=== PATIENT | male | born 1955 | race Caucasian/White ===

== ENCOUNTER 2020-12-18 17:00 | Inpatient (IN) | payer BC, MEDICAID ==
[2020-12-18] MEDS ORDERED: Sodium Chloride 0.9% 10 ML Syringe FLUSH PRN (17:52)
[2020-12-18] MEDS ORDERED: Albuterol/Ipratropium 3.0-0.5 MG/3 ML Neb Soln NEB ONE (17:53)
[2020-12-18] MEDS ORDERED: Iopamidol 755 Mg/ML 100 ML Bottle IVPUSH ONE (19:31)
--- NOTE | 2020-12-18 19:32 | EDM.PDOC ---
ED HPI GENERAL MEDICAL PROBLEM - General Chief Complaint: Respiratory Problem Stated Complaint: [facility] Time Seen by Provider: 12/18/20 17:10 Source of Information: Reports: Patient, Fpc Records, RN Notes Reviewed History Limitations: Reports: No Limitations - History of Present Illness INITIAL COMMENTS - FREE TEXT/NARRATIVE: Patient is a 65-year-old male presenting to the emergency department via [facility] from [facility] with complaints of shortness of breath, wheezing, and tachypnea. He also reports a productive co ugh. Patient reports that symptoms began today. He denies any chest pain. On presentation to ER, patient was on 2 L of oxygen by nasal cannula through ambulance. He was saturating 94% on that 2 L. The time my exam, oxygen saturation was 98% on 2 L. Patient does not wear O2 at the [facility]. 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 He was recently started on chemotherapy medication, Zelboraf. Patient reports that he was recently treated for a urinary tract infection. Per care home records, he finished a course of Bactrim on 12 December. He denies any fever or chills. Has had no nausea or vomiting. Vital signs were found to be stable on triage. Temperature 98.1, pulse 83, blood pressure 124/84, respiratory rate 16. 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 - Related Data Allergies Allergy/AdvReac Type Severity Reaction Status Date / Time No Known Allergies Allergy Verified 08/16/20 11:53 [employer] Home Meds: Home Meds Sertraline HCl 100 mg PO DAILY 03/06/19 [History] atorvaSTATin [Lipitor] 20 mg PO BEDTIME 03/06/19 [History] Acetaminophen [Tylenol] 2 tab PO QID PRN 12/18/20 [History] Ferrous Sulfate [Ferosul] 325 mg PO BID 12/18/20 [History] L.acidoph,Saliva/B.bif/S.therm [Acidophilus 175 mg Capsule] 1 cap PO DAILY 12/18/20 [History] Melatonin 3 mg PO BEDTIME 12/18/20 [History] OLANZapine [Olanzapine] 10 mg PO DAILY 12/18/20 [History] OLANZapine [Olanzapine] 20 mg PO BEDTIME 12/18/20 [History] Pantoprazole [ProTONIX] 40 mg PO DAILY 12/18/20 [History] QUEtiapine [SEROquel] 50 mg PO Q8HR PRN 12/18/20 [History] Rivaroxaban [Xarelto] 20 mg PO QPM 12/18/20 [History] Vemurafenib [Zelboraf] 480 mg PO BID 12/18/20 [History] lamoTRIgine [Lamictal] 100 mg PO BEDTIME 12/18/20 [History] lamoTRIgine [Lamictal] 100 mg PO DAILY 12/18/20 [History] ondansetron HCL [Zofran] 4 mg PO Q4H PRN 12/18/20 [History] traMADol HCl [Tramadol HCl] 50 mg PO BID PRN 12/18/20 [History] Past Medical History - Past Health History Medical/Surgical History: Denies Medical/Surgical History HEENT History: Reports: Hard of Hearing Cardiovascular History: Reports: [place] Respiratory History: Reports: None Gastrointestinal History: Reports: None Genitourinary History: Reports: None Musculoskeletal History: Reports: Other (See Below) Other Musculoskeletal History: "broken hip" Neurological History: Reports: Other (See Below) Psychiatric History: Reports: Suicidal Ideation Endocrine/Metabolic History: Reports: None Insulin Pump Model and Stripe Marker: None Hematologic History: Reports: Other (See Below) Other Hematologic History: "blood cancer and it makes my brain swell" Immunologic History: Reports: None Oncologic (Cancer) History: Reports: Malignant Melanoma Other Oncologic History: Patient states he has a cancer in his blood which causes his brain to be "inflammed." Dermatologic History: Reports: None - Infectious Disease History Infectious Disease History: Reports: Chicken Pox, Measles, Mumps - Past Surgical History Cardiovascular Surgical History: Reports: Coronary Artery Bypass Other Musculoskeletal Surgeries/Procedures:: "put three screws in hip" Social & Family History - Family History Family Medical History: No Pertinent Family History - Tobacco Use Tobacco Use Status *Q: Never Tobacco User Second Hand Smoke Exposure: No - Caffeine Use Caffeine Use: Reports: None - Recreational Drug Use Recreational Drug Use: No - Living Situation & Occupation Living situation: Reports: , Alone Occupation: Unemployed ED ROS GENERAL - Review of Systems Review Of Systems: See Below Constitutional: Denies: Fever, Chills, Weakness HEENT: Reports: No Symptoms Respiratory: Reports: Shortness of Breath, Wheezing, Cough Cardiovascular: Reports: No Symptoms. Denies: Chest Pain Endocrine: Reports: No Symptoms GI/Abdominal: Reports: Constipation ED EXAM, GENERAL - Physical Exam Exam: See Below Exam Limited By: No Limitations General Appearance: Alert, WD/WN, No Apparent Distress Respiratory/Chest: No Respiratory Distress, No Accessory Muscle Use, Chest Non- Tender, Rhonchi (faint throughout), Wheezing (Expiratory throughout) Cardiovascular: Normal Peripheral Pulses, Regular Rate, Rhythm, No Edema, No Gallop, No JVD, No Murmur, No Rub GI/Abdominal: Normal Bowel Sounds, Soft, Non-Tender, No Organomegaly, No Distention, No Abnormal Bruit, No Mass Neurological: Alert, Oriented, CN II-XII Intact, Normal Cognition, Normal Gait, Normal Reflexes, No Motor/Sensory Deficits Psychiatric: Normal Affect, Normal Mood Skin Exam: Warm, Dry, Intact, Normal Color, No Rash #1 Interpretation EKG Date: 12/18/20 Time: 18:17 Rhythm: NSR Rate (Beats/Min): 82 [place]: Normal P-Wave: Present QRS: RBBB ST-T: Elevated QT: Normal EKG Interpretation Comments: Sinus rhythm 82 Right bundle branch block Inferior infarct, old Probable posterior infarct, acute EKG was reviewed by Dr. Bassem MD and there was deemed to be no acute change from previous EKGs. Patient is not having chest pain. Course - Vital Signs Last Recorded V/S: Last Vital Signs Temp 98.1 F 12/18/20 17:15 Pulse 83 12/18/20 17:15 Resp 16 12/18/20 17:15 BP 124/84 12/18/20 17:15 Pulse Ox 98 12/18/20 18:15 - Orders/Labs/Meds Orders: Active Orders 24 hr Category Date Time Status EKG Documentation Completion [RC] STAT Care 12/18/20 17:52 Active Peripheral IV Care [RC] . DIRECTED Care 12/18/20 17:53 Active RT Aerosol Therapy [RC] ASDIRECTED Care 12/18/20 17:53 Active CULTURE BLOOD [BC] Stat Lab 12/18/20 19:40 Received CULTURE BLOOD [BC] Stat Lab 12/18/20 19:48 Received REFLEX LACTIC ACID YES OR NO [CHEM] Routine Lab 12/18/20 20:18 Received Sodium Chloride 0.9% [Normal Saline] 1,000 ml Med 12/18/20 20:41 Active IV NOW Sodium Chloride 0.9% [Normal Saline] 100 ml Med 12/18/20 19:45 Active IV ASDIRECTED Sodium Chloride 0.9% [Saline Flush] Med 12/18/20 19:45 Active 10 ml FLUSH ASDIRECTED Blood Culture x2 Reflex Set [OM.PC] Stat Ot 12/18/20 19:00 Ordered Peripheral IV Insertion Adult [OM.PC] Stat Ot 12/18/20 17:52 Ordered Medication Orders Acetaminophen (Acetaminophen 325 Mg Tab) 650 mg PO Q6H PRN PRN Reason: Pain (Mild 1-3)/fever Hydrocodone Bitart/Acetaminophen (Acetaminophen/Hydrocodone 325-5 Mg Tab) 1 tab PO Q6H PRN PRN Reason: Pain (moderate 4-6) Albuterol/Ipratropium (Albuterol/Ipratropium 3.0-0.5 Mg/3 Ml Neb Soln) 3 ml NEB Q4H PRN PRN Reason: Shortness Of Breath/wheezing Atorvastatin Calcium (Atorvastatin 20 Mg Tab) 20 mg PO BEDTIME MELISSA Carbamazepine (Carbamazepine 200 Mg Tab) 200 mg PO BID MELISSA Hydralazine HCl (Hydralazine 20 Mg/Ml Sdv) 10 mg IVPUSH Q4H PRN PRN Reason: Hypertension Sodium Chloride (Normal Saline) 100 mls @ 60 mls/hr IV ASDIRECTED [facility] Last Admin: 12/18/20 20:15 Dose: 60 mls/hr Documented by: JERILYN Sodium Chloride (Normal Saline) 1,000 mls @ 100 mls/hr IV NOW STA Stop: 12/19/20 06:40 Last Admin: 12/18/20 21:09 Dose: 100 mls/hr Documented by: MERVIN Lactated Ringer's (Ringers, Lactated) 1,000 mls @ 70 mls/hr IV ASDIRECTED [facility] Promethazine HCl 12.5 mg/ (Sodium Chloride) 50.5 mls @ 100 mls/hr IV Q6H PRN PRN Reason: Nausea/Vomiting Ceftriaxone Sodium 2 gm/ (Sodium Chloride) 100 mls @ 200 mls/hr IV Q24H MELISSA Azithromycin 500 mg/ Sodium (Chloride) 250 mls @ 250 mls/hr IV Q24H [facility] Lisinopril (Lisinopril 2.5 Mg Tab) 2.5 mg PO DAILY [facility] Metoprolol Tartrate (Metoprolol Tartrate 50 Mg Tab) 25 mg PO BID [facility] Morphine Sulfate (Morphine 2 Mg/Ml Syringe) 2 mg IVPUSH Q4H PRN PRN Reason: Pain (severe 7-10) Stop: 12/19/20 21:20 Non-Formulary Medication (Omeprazole) 20 mg PO DAILY [facility] Sertraline HCl (Sertraline 50 Mg Tab) 50 mg PO DAILY [facility] Sodium Chloride (Sodium Chloride 0.9% 10 Ml Syringe) 10 ml FLUSH ASDIRECTED [facility] Last Admin: 12/18/20 20:15 Dose: 10 ml Documented by: JERILYN Labs: Laboratory Tests 12/18/20 12/18/20 12/18/20 Range/Units 18:00 18:00 18:00 WBC 17.75 H (4.23-9.07) K/mm3 Corrected WBC 16.1 K/mm3 RBC 4.98 (4.63-6.08) M/mm3 Hgb 9.6 L (13.7-17.5) gm/dl Hct 32.3 L (40.1-51.0) % MCV 64.9 L (79.0-92.2) fl MCH 19.3 L (25.7-32.2) pg MCHC 29.7 L (32.2-35.5) g/dl RDW Std Deviation 53.4 H (35.1-43.9) fL Plt Count 58 L (163-337) K/mm3 Neut % (Auto) Cancelled Lymph % (Auto) Cancelled [place] % (Auto) Cancelled Eos % (Auto) Cancelled Baso % (Auto) Cancelled Neut # (Auto) Cancelled Lymph # (Auto) Cancelled [place] # (Auto) Cancelled Eos # (Auto) Cancelled Baso # (Auto) Cancelled Neutrophils % (Manual) 20 L (40-60) % Band Neutrophils % 4 (0-10) % Lymphocytes % (Manual) 21 (20-40) % Atypical Lymphs % 0 % Monocytes % (Manual) 40 H (2-10) % Eosinophils % (Manual) 0 L (0.8-7.0) % Basophils % (Manual) 15 H (0.2-1.2) Nucleated RBCs 10.0 % Manual Slide Review Cancelled Platelet Estimate Marked dec Plt Morphology Comment See note Polychromasia 1+ slight Hypochromasia 2+ moderate Poikilocytosis 2+ moderate Anisocytosis 2+ moderate Microcytosis 3+ marked Target Cells 1+ slight Tear Drop Cells 1+ slight Ovalocytes 2+ moderate RBC Morph Comment Abnormal D-Dimer, Quantitative 1.23 H (0.19-0.50) mg/L Sodium 142 (136-145) mEq/L Potassium 3.7 (3.5-5.1) mEq/L Chloride 108 H (98-107) mEq/L Carbon Dioxide 24 (21-32) mEq/L Anion Gap 13.7 (5-15) BUN 15 (7-18) mg/dL Creatinine 1.1 (0.7-1.3) mg/dL Est Cr Clr Drug Dosing TNP Estimated GFR (MDRD) > 60 (>60) mL/min BUN/Creatinine Ratio 13.6 L (14-18) Glucose 96 (70-99) mg/dL Lactic Acid (0.4-2.0) mmol/L Calcium 7.3 L (8.5-10.1) mg/dL Total Bilirubin 2.0 H (0.2-1.0) mg/dL AST 41 H (15-37) U/L ALT 25 (16-63) U/L Alkaline Phosphatase 274 H (46-116) U/L Troponin I < 0.017 (0.00-0.056) ng/mL C-Reactive Protein 5.3 H* (<1.0) mg/dL NT-Pro-B Natriuret Pep (0-125) pg/mL Total Protein 5.1 L (6.4-8.2) g/dl Albumin 2.4 L (3.4-5.0) g/dl Globulin 2.7 gm/dL Albumin/Globulin Ratio 0.9 L (1-2) Urine Color (Yellow) Urine Appearance (Clear) Urine pH (5.0-8.0) Ur Specific [place] (1.005-1.030) Urine Protein (Negative) Urine Glucose (UA) (Negative) Urine Ketones (Negative) Urine Occult Blood (Negative) Urine Nitrite (Negative) Urine Bilirubin (Negative) Urine Urobilinogen (0.2-1.0) Ur Leukocyte Esterase (Negative) Urine RBC (0-5) /hpf Urine WBC (0-5) /hpf Ur Epithelial Cells (0-5) /hpf Urine Bacteria (FEW) /hpf Urine Mucus (FEW) /hpf 12/18/20 12/18/20 12/18/20 Range/Units 18:00 19:33 19:40 WBC (4.23-9.07) K/mm3 Corrected WBC K/mm3 RBC (4.63-6.08) M/mm3 Hgb (13.7-17.5) gm/dl Hct (40.1-51.0) % MCV (79.0-92.2) fl MCH (25.7-32.2) pg MCHC (32.2-35.5) g/dl RDW Std Deviation (35.1-43.9) fL Plt Count (163-337) K/mm3 Neut % (Auto) Lymph % (Auto) [place] % (Auto) Eos % (Auto) Baso % (Auto) Neut # (Auto) Lymph # (Auto) [place] # (Auto) Eos # (Auto) Baso # (Auto) Neutrophils % (Manual) (40-60) % Band Neutrophils % (0-10) % Lymphocytes % (Manual) (20-40) % Atypical Lymphs % % Monocytes % (Manual) (2-10) % Eosinophils % (Manual) (0.8-7.0) % Basophils % (Manual) (0.2-1.2) Nucleated RBCs % Manual Slide Review Platelet Estimate Plt Morphology Comment Polychromasia Hypochromasia Poikilocytosis Anisocytosis Microcytosis Target Cells Tear Drop Cells Ovalocytes RBC Morph Comment D-Dimer, Quantitative (0.19-0.50) mg/L Sodium (136-145) mEq/L Potassium (3.5-5.1) mEq/L Chloride (98-107) mEq/L Carbon Dioxide (21-32) mEq/L Anion Gap (5-15) BUN (7-18) mg/dL Creatinine (0.7-1.3) mg/dL Est Cr Clr Drug Dosing Estimated GFR (MDRD) (>60) mL/min BUN/Creatinine Ratio (14-18) Glucose (70-99) mg/dL Lactic Acid 2.3 H* (0.4-2.0) mmol/L Calcium (8.5-10.1) mg/dL Total Bilirubin (0.2-1.0) mg/dL AST (15-37) U/L ALT (16-63) U/L Alkaline Phosphatase (46-116) U/L Troponin I (0.00-0.056) ng/mL C-Reactive Protein (<1.0) mg/dL NT-Pro-B Natriuret Pep 1140 H (0-125) pg/mL Total Protein (6.4-8.2) g/dl Albumin (3.4-5.0) g/dl Globulin gm/dL Albumin/Globulin Ratio (1-2) Urine Color Yellow (Yellow) Urine Appearance Clear (Clear) Urine pH 6.0 (5.0-8.0) Ur Specific [place] 1.020 (1.005-1.030) Urine Protein Negative (Negative) Urine Glucose (UA) Negative (Negative) Urine Ketones Negative (Negative) Urine Occult Blood Negative (Negative) Urine Nitrite Negative (Negative) Urine Bilirubin Negative (Negative) Urine Urobilinogen 2.0 H (0.2-1.0) Ur Leukocyte Esterase Negative (Negative) Urine RBC 0-5 (0-5) /hpf Urine WBC Not seen (0-5) /hpf Ur Epithelial Cells Not seen (0-5) /hpf Urine Bacteria Rare (FEW) /hpf Urine Mucus Few (FEW) /hpf Meds: Medications Generic Name Dose Route Start Last Admin Trade Name Freq PRN Reason Stop Dose Admin Acetaminophen 650 mg 12/18/20 21:18 Acetaminophen 325 Mg Tab PO Q6H PRN Pain (Mild 1-3)/fever Hydrocodone Bitart/Acetaminophen 1 tab 12/18/20 21:18 Acetaminophen/Hydrocodone 325-5 Mg Tab PO Q6H PRN Pain (moderate 4-6) Albuterol/Ipratropium 3 ml 12/18/20 21:18 Albuterol/Ipratropium 3.0-0.5 Mg/3 Ml Neb Soln NEB Q4H PRN Shortness Of Breath/wheezing Atorvastatin Calcium 20 mg 12/19/20 21:00 Atorvastatin 20 Mg Tab PO BEDTIME MELISSA Carbamazepine 200 mg 12/18/20 21:30 Carbamazepine 200 Mg Tab PO BID MELISSA Hydralazine HCl 10 mg 12/18/20 21:26 Hydralazine 20 Mg/Ml Sdv IVPUSH Q4H PRN Hypertension Sodium Chloride 100 mls @ 60 mls/hr 12/18/20 19:45 12/18/20 20:15 Normal Saline IV 60 mls/hr ASDIRECTED MELISSA Administration Sodium Chloride 1,000 mls @ 100 mls/hr 12/18/20 20:41 12/18/20 21:09 Normal Saline IV 12/19/20 06:40 100 mls/hr NOW STA Administration Lactated Ringer's 1,000 mls @ 70 mls/hr 12/18/20 21:30 Ringers, Lactated IV ASDIRECTED MELISSA Promethazine HCl 12.5 mg/ 50.5 mls @ 100 mls/hr 12/18/20 21:18 Sodium Chloride IV Q6H PRN Nausea/Vomiting Ceftriaxone Sodium 2 gm/ 100 mls @ 200 mls/hr 12/19/20 21:00 Sodium Chloride IV Q24H MELISSA Azithromycin 500 mg/ Sodium 250 mls @ 250 mls/hr 12/18/20 22:00 Chloride IV Q24H MELISSA Lisinopril 2.5 mg 12/19/20 09:00 Lisinopril 2.5 Mg Tab PO DAILY MELISSA Metoprolol Tartrate 25 mg 12/19/20 09:00 Metoprolol Tartrate 50 Mg Tab PO BID MELISSA Morphine Sulfate 2 mg 12/18/20 21:18 Morphine 2 Mg/Ml Syringe IVPUSH 12/19/20 21:20 Q4H PRN Pain (severe 7-10) Non-Formulary Medication 20 mg 12/19/20 09:00 Omeprazole PO DAILY MELISSA Sertraline HCl 50 mg 12/19/20 09:00 Sertraline 50 Mg Tab PO DAILY MELISSA Sodium Chloride 10 ml 12/18/20 19:45 12/18/20 20:15 Sodium Chloride 0.9% 10 Ml Syringe FLUSH 10 ml ASDIRECTED MELISSA Administration Discontinued Medications Generic Name Dose Route Start Last Admin Trade Name Freq PRN Reason Stop Dose Admin Albuterol/Ipratropium 3 ml 12/18/20 17:53 12/18/20 18:15 Albuterol/Ipratropium 3.0-0.5 Mg/3 Ml Neb Soln NEB 12/18/20 17:54 3 ml ONETIME ONE Administration Ceftriaxone Sodium 2 gm/ 100 mls @ 200 mls/hr 12/18/20 20:38 12/18/20 21:09 Sodium Chloride IV 12/18/20 21:07 200 mls/hr ONETIME ONE Administration Iopamidol 100 ml 12/18/20 19:31 12/18/20 20:14 Iopamidol 755 Mg/Ml 100 Ml Bottle IVPUSH 12/18/20 19:32 100 ml ONETIME ONE Administration Sodium Chloride 10 ml 12/18/20 17:52 12/18/20 18:10 Sodium Chloride 0.9% 10 Ml Syringe FLUSH 10 ml ASDIRECTED PRN Administration Keep Vein Open - Re-Assessments/Exams Free Text/Narrative Re-Assessment/Exam: Patient is a 65-year-old male presenting to the emergency department from [facility] with complaints of wheezing and shortness of breath. Patient states his symptoms began today. care home reports that he is only alert and oriented x1, however throughout my exam, he answered questions appropriately and did know where he was. He was unsure of the date, therefore he is oriented x2. He has a history of Erdheim-Harjinder disease for which he is currently taking the chemotherapy medication Zelboraf. He denies any chest pain. On exam, he does have diffuse expiratory wheezing bilaterally. Oxygen was turned off and he has been saturating 95 to 98% on room air. I have ordered blood work, urinalysis, EKG, and two-view chest x-ray. I have also ordered a DuoNeb breathing treatment. 12/18/201899 Hematology was significant for WBC elevated at 17.75, hemoglobin low at 9.6, D- dimer 1.23, chloride 108, calcium 7.3, total bili 2.0, AST 41, alkaline phosphatase 274, CRP 5.3, proBNP 1140. Troponin is undetectably low. Urinalysis shows no signs of infection. Chest x-ray shows nothing acute. Patient is wheezing did improve significantly after the DuoNeb breathing treatment. Given his elevation in WBCs as well as elevated D-dimer, I have ordered lactic acid, blood cultures, and a CT angiogram of the chest. 12/18/202049 Lactic acid is found to be elevated 2.3. CT angiogram of the chest impression as follows: 1. No findings of pulmonary embolism. 2. Patchy increased density within the left upper chest suspicious for small area of pneumonia. 3. Mild prominent lymph node within the mediastinum as well as marked splenomegaly. Left adrenal mass also appears to be present. Difficult to exclude lymphoma if patient has any correlating symptoms. 4. Slight inflammatory change around the right kidney. Uncertain as to etiology without contrast enhanced CT abdomen and pelvis study. Given patient's history of oral chemotherapy as well as elevation in WBCs and lactic acid, I feel admission to the hospital is warranted. I have ordered Rocephin 2 g IV as well as NS at 150 mils per hour. Case was discussed with hospitalist, Dr. Couch. He has accepted the patient for admission. Departure - Departure Time of Disposition: 22:08 Disposition: Home, Self-Care 01 Condition: Good Clinical Impression: Pneumonia Qualifiers: Pneumonia type: due to unspecified organism Laterality: left Lung location: upper lobe of lung Qualified Code(s): J18.9 - Pneumonia, unspecified organism - Discharge Information Sepsis Event Note (ED) - Evaluation Sepsis Screening Result: No Definite Risk - Focused Exam Vital Signs: Vital Signs Temp Pulse Resp BP Pulse Ox Pulse Ox 12/18/20 18:15 98 12/18/20 17:15 98.1 F 83 16 124/84 94 L - My Orders Last 24 Hours: My Active Orders 12/18/20 17:52 EKG Documentation Completion [RC] STAT Peripheral IV Insertion Adult [OM.PC] Stat 12/18/20 17:53 Peripheral IV Care [RC] . DIRECTED RT Aerosol Therapy [RC] ASDIRECTED 12/18/20 19:00 Blood Culture x2 Reflex Set [OM.PC] Stat 12/18/20 19:40 CULTURE BLOOD [BC] Stat 12/18/20 19:45 Sodium Chloride 0.9% [Normal Saline] 100 ml IV ASDIRECTED Sodium Chloride 0.9% [Saline Flush] 10 ml FLUSH ASDIRECTED 12/18/20 19:48 CULTURE BLOOD [BC] Stat 12/18/20 20:18 REFLEX LACTIC ACID YES OR NO [CHEM] Routine 12/18/20 20:41 Sodium Chloride 0.9% [Normal Saline] 1,000 ml IV NOW - Assessment/Plan Last 24 Hours: My Active Orders 12/18/20 17:52 EKG Documentation Completion [RC] STAT Peripheral IV Insertion Adult [OM.PC] Stat 12/18/20 17:53 Peripheral IV Care [RC] . DIRECTED RT Aerosol Therapy [RC] ASDIRECTED 12/18/20 19:00 Blood Culture x2 Reflex Set [OM.PC] Stat 12/18/20 19:40 CULTURE BLOOD [BC] Stat 12/18/20 19:45 Sodium Chloride 0.9% [Normal Saline] 100 ml IV ASDIRECTED Sodium Chloride 0.9% [Saline Flush] 10 ml FLUSH ASDIRECTED 12/18/20 19:48 CULTURE BLOOD [BC] Stat 12/18/20 20:18 REFLEX LACTIC ACID YES OR NO [CHEM] Routine 12/18/20 20:41 Sodium Chloride 0.9% [Normal Saline] 1,000 ml IV NOW
--- NOTE | 2020-12-18 19:35 | CR ---
Chest: 2 views of the chest were obtained. Comparison: No previous study. Small portions of the chest are not included on this exam due to the patient's body size. Heart size and mediastinum are normal. Lungs are clear with no acute parenchymal change. Previous sternotomy is noted. Minimal degenerative change is scattered within the spine. Slight anterior wedge deformity with the lower thoracic spine is seen which is most likely chronic. Impression: 1. Nothing acute is appreciated on 2 view chest x-ray. Diagnostic code #2
[2020-12-18] MEDS ORDERED: Sodium Chloride 0.9% 100 ML IV SCH (19:45)
[2020-12-18] MEDS ORDERED: Sodium Chloride 0.9% 10 ML Syringe FLUSH SCH (19:45)
--- NOTE | 2020-12-18 20:36 | CT ---
CT chest Technique: Multiple axial sections through the chest were obtained. Intravenous contrast was utilized. Study has been performed as a pulmonary angiogram protocol. Comparison: Prior chest x-ray performed earlier on the same day (6:04 PM). Findings: Pulmonary arteries are well opacified. No filling defects are seen to indicate pulmonary embolism. Scattered lymph nodes are seen. One lymph node is increased in size measuring 2.2 cm. Thoracic aorta shows mild atherosclerotic change without aneurysm. Slightly prominent right hilar lymph node is also noted. Heart is slightly enlarged. No pericardial thickening is seen. Spleen is prominently enlarged. Left adrenal gland may be enlarged. Varicosities appear to be present within the upper abdomen. Several calcified gallstones are seen. Questionable inflammatory change around the right kidney is noted. Diffuse emphysematous change is seen. Patchy increased density within the left upper chest is noted. Lungs otherwise are clear. Impression: 1. No findings of pulmonary embolism. 2. Patchy increased density within the left upper chest suspicious for small area of pneumonia. 3. Mildly prominent lymph nodes within the mediastinum as well as marked splenomegaly. Left adrenal mass also appears to be present. Difficult to exclude lymphoma if patient has any correlating symptoms. 4. Slight inflammatory type change around the right kidney. Uncertain as to etiology without contrast enhanced CT abdomen and pelvis study. Diagnostic code #9
[2020-12-18] MEDS ORDERED: cefTRIAXone 2 GM in Sodium Chloride 0.9% 100 ML IV ONE (20:38)
[2020-12-18] MEDS ORDERED: Sodium Chloride 0.9% 1,000 ML IV STA (20:41)
[2020-12-18] MEDS ORDERED: Morphine 2 MG/ML SYRINGE IVPUSH PRN (21:18)
[2020-12-18] MEDS ORDERED: Promethazine 12.5 MG in Sodium Chloride 0.9% 50 ML IV PRN (21:18)
[2020-12-18] MEDS ORDERED: hydrALAZINE 20 MG/ML SDV IVPUSH PRN (21:26)
[2020-12-18] MEDS ORDERED: carBAMazepine 200 MG Tab PO SCH (21:30)
--- NOTE | 2020-12-18 21:31 | PCM.HP.2 ---
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 Patient has been having shortness of breath for 3 weeks associated with the cough with yellowish sputum. He also complains of left upper quadrant abdomen pain for 3 weeks. The pain is constant, sharp in nature and a 10 out of 10 in severity. He feels more pain if he takes deep breaths. He has been having slurred speech for 3 years. Otherwise he denies headache, dizziness, nausea, vomiting, chest pain, or dysuria. He needed oxygen in the ER. In the ER, D-dimer was elevated. CT angio chest was performed showing no pulmonary embolism. Generalized Pain Score (Numeric/FACES): 6 - Related Data Allergies/Adverse Reactions: Allergies Allergy/AdvReac Type Severity Reaction Status Date / Time No Known Allergies Allergy Verified 08/16/20 11:53 SHIATSU THERAPIST Home Medications: Home Meds Sertraline HCl 100 mg PO DAILY 03/06/19 [History] atorvaSTATin [Lipitor] 20 mg PO BEDTIME 03/06/19 [History] Acetaminophen [Tylenol] 2 tab PO QID 12/18/20 [History] Ferrous Sulfate [Ferosul] 325 mg PO BID 12/18/20 [History] L.acidoph,Saliva/B.bif/S.therm [Acidophilus 175 mg Capsule] 1 cap PO DAILY 12/18/20 [History] Lidocaine 5% [Lidoderm 5%] 1 patch TOP DAILY 12/18/20 [History] Melatonin 3 mg PO BEDTIME 12/18/20 [History] OLANZapine [Olanzapine] 10 mg PO DAILY 12/18/20 [History] OLANZapine [Olanzapine] 20 mg PO BEDTIME 12/18/20 [History] Pantoprazole [ProTONIX] 40 mg PO DAILY 12/18/20 [History] QUEtiapine [SEROquel] 50 mg PO Q8HR PRN 12/18/20 [History] Rivaroxaban [Xarelto] 20 mg PO QPM 12/18/20 [History] Vemurafenib [Zelboraf] 480 mg PO BID 12/18/20 [History] lamoTRIgine [Lamictal] 100 mg PO BEDTIME 12/18/20 [History] lamoTRIgine [Lamictal] 100 mg PO DAILY 12/18/20 [History] ondansetron HCL [Zofran] 8 mg PO Q4H PRN 12/18/20 [History] traMADol HCl [Tramadol HCl] 50 mg PO BID PRN 12/18/20 [History] Past Medical History - Past Health History Medical/Surgical History: Denies Medical/Surgical History HEENT History: Reports: Hard of Hearing Cardiovascular History: Reports: [place] Respiratory History: Reports: None Gastrointestinal History: Reports: None Genitourinary History: Reports: None Musculoskeletal History: Reports: Other (See Below) Other Musculoskeletal History: "broken hip" Neurological History: Reports: Other (See Below) Psychiatric History: Reports: Suicidal Ideation Endocrine/Metabolic History: Reports: None Insulin Pump Model and Solution Developer: None Hematologic History: Reports: Other (See Below) Other Hematologic History: "blood cancer and it makes my brain swell" Immunologic History: Reports: None Oncologic (Cancer) History: Reports: Malignant Melanoma Other Oncologic History: Patient states he has a cancer in his blood which causes his brain to be "inflammed." Dermatologic History: Reports: None - Infectious Disease History Infectious Disease History: Reports: Chicken Pox, Measles, Mumps - Past Surgical History Cardiovascular Surgical History: Reports: Coronary Artery Bypass Other Musculoskeletal Surgeries/Procedures:: "put three screws in hip" Social & Family History - Family History Family Medical History: No Pertinent Family History (No genetic diseases in the family) - Tobacco Use Tobacco Use Status *Q: Never Tobacco User Second Hand Smoke Exposure: No - Caffeine Use Caffeine Use: Reports: None - Recreational Drug Use Recreational Drug Use: No - Living Situation & Occupation Living situation: Reports: , Alone Occupation: Unemployed H&P Review of Systems - Review of Systems: Review Of Systems: See Below General: Reports: No Symptoms HEENT: Reports: No Symptoms Pulmonary: Reports: Shortness of Breath, Cough, Sputum Cardiovascular: Reports: No Symptoms Gastrointestinal: Reports: No Symptoms Genitourinary: Reports: No Symptoms Musculoskeletal: Reports: No Symptoms Skin: Reports: No Symptoms Psychiatric: Reports: No Symptoms Neurological: Reports: No Symptoms Hematologic/Lymphatic: Reports: No Symptoms Immunologic: Reports: No Symptoms Exam - Exam Exam: See Below - Vital Signs Vital Signs: Last Vital Signs Temp 36.7 C 12/18/20 17:15 Pulse 83 12/18/20 17:15 Resp 16 12/18/20 17:15 BP 124/84 12/18/20 17:15 Pulse Ox 98 12/18/20 18:15 Weight: 78.018 kg - Exam General: Alert, Oriented, Cooperative HEENT: Conjunctiva Clear, EOMI, Pupils Equal, Pupils Reactive Neck: Supple, Full Range of Motion Lungs: Clear to Auscultation, Normal Respiratory Effort Cardiovascular: Irregular Rhythm GI/Abdominal Exam: Normal Bowel Sounds, Soft, Tender (Over left upper quadrant) Extremities: Normal Inspection, Normal Range of Motion, Non-Tender, No Pedal E laz Neurological: Cranial Nerves Intact, Strength Equal Bilateral, Normal Tone, Sensation Intact, Other (Has been having slurred speech for 3 years) Neuro Extensive - Mental Status: Alert, Normal Mood/Affect Psychiatric: Normal Affect, Normal Mood - Patient Data Lab Results Last 24 hrs: Laboratory Results - last 24 hr 12/18/20 12/18/20 12/18/20 Range/Units 18:00 18:00 18:00 WBC 17.75 H (4.23-9.07) K/mm3 Corrected WBC 16.1 K/mm3 RBC 4.98 (4.63-6.08) M/mm3 Hgb 9.6 L (13.7-17.5) gm/dl Hct 32.3 L (40.1-51.0) % MCV 64.9 L (79.0-92.2) fl MCH 19.3 L (25.7-32.2) pg MCHC 29.7 L (32.2-35.5) g/dl RDW Std Deviation 53.4 H (35.1-43.9) fL Plt Count 58 L (163-337) K/mm3 Neut % (Auto) Cancelled Lymph % (Auto) Cancelled [place] % (Auto) Cancelled Eos % (Auto) Cancelled Baso % (Auto) Cancelled Neut # (Auto) Cancelled Lymph # (Auto) Cancelled [place] # (Auto) Cancelled Eos # (Auto) Cancelled Baso # (Auto) Cancelled Neutrophils % (Manual) 20 L (40-60) % Band Neutrophils % 4 (0-10) % Lymphocytes % (Manual) 21 (20-40) % Atypical Lymphs % 0 % Monocytes % (Manual) 40 H (2-10) % Eosinophils % (Manual) 0 L (0.8-7.0) % Basophils % (Manual) 15 H (0.2-1.2) Nucleated RBCs 10.0 % Manual Slide Review Cancelled Platelet Estimate Marked dec Plt Morphology Comment See note Polychromasia 1+ slight Hypochromasia 2+ moderate Poikilocytosis 2+ moderate Anisocytosis 2+ moderate Microcytosis 3+ marked Target Cells 1+ slight Tear Drop Cells 1+ slight Ovalocytes 2+ moderate RBC Morph Comment Abnormal D-Dimer, Quantitative 1.23 H (0.19-0.50) mg/L Sodium 142 (136-145) mEq/L Potassium 3.7 (3.5-5.1) mEq/L Chloride 108 H (98-107) mEq/L Carbon Dioxide 24 (21-32) mEq/L Anion Gap 13.7 (5-15) BUN 15 (7-18) mg/dL Creatinine 1.1 (0.7-1.3) mg/dL Est Cr Clr Drug Dosing TNP Estimated GFR (MDRD) > 60 (>60) mL/min BUN/Creatinine Ratio 13.6 L (14-18) Glucose 96 (70-99) mg/dL Lactic Acid (0.4-2.0) mmol/L Calcium 7.3 L (8.5-10.1) mg/dL Total Bilirubin 2.0 H (0.2-1.0) mg/dL AST 41 H (15-37) U/L ALT 25 (16-63) U/L Alkaline Phosphatase 274 H (46-116) U/L Troponin I < 0.017 (0.00-0.056) ng/mL C-Reactive Protein 5.3 H* (<1.0) mg/dL NT-Pro-B Natriuret Pep (0-125) pg/mL Total Protein 5.1 L (6.4-8.2) g/dl Albumin 2.4 L (3.4-5.0) g/dl Globulin 2.7 gm/dL Albumin/Globulin Ratio 0.9 L (1-2) Urine Color (Yellow) Urine Appearance (Clear) Urine pH (5.0-8.0) Ur Specific [place] (1.005-1.030) Urine Protein (Negative) Urine Glucose (UA) (Negative) Urine Ketones (Negative) Urine Occult Blood (Negative) Urine Nitrite (Negative) Urine Bilirubin (Negative) Urine Urobilinogen (0.2-1.0) Ur Leukocyte Esterase (Negative) Urine RBC (0-5) /hpf Urine WBC (0-5) /hpf Ur Epithelial Cells (0-5) /hpf Urine Bacteria (FEW) /hpf Urine Mucus (FEW) /hpf 12/18/20 12/18/20 12/18/20 Range/Units 18:00 19:33 19:40 WBC (4.23-9.07) K/mm3 Corrected WBC K/mm3 RBC (4.63-6.08) M/mm3 Hgb (13.7-17.5) gm/dl Hct (40.1-51.0) % MCV (79.0-92.2) fl MCH (25.7-32.2) pg MCHC (32.2-35.5) g/dl RDW Std Deviation (35.1-43.9) fL Plt Count (163-337) K/mm3 Neut % (Auto) Lymph % (Auto) [place] % (Auto) Eos % (Auto) Baso % (Auto) Neut # (Auto) Lymph # (Auto) [place] # (Auto) Eos # (Auto) Baso # (Auto) Neutrophils % (Manual) (40-60) % Band Neutrophils % (0-10) % Lymphocytes % (Manual) (20-40) % Atypical Lymphs % % Monocytes % (Manual) (2-10) % Eosinophils % (Manual) (0.8-7.0) % Basophils % (Manual) (0.2-1.2) Nucleated RBCs % Manual Slide Review Platelet Estimate Plt Morphology Comment Polychromasia Hypochromasia Poikilocytosis Anisocytosis Microcytosis Target Cells Tear Drop Cells Ovalocytes RBC Morph Comment D-Dimer, Quantitative (0.19-0.50) mg/L Sodium (136-145) mEq/L Potassium (3.5-5.1) mEq/L Chloride (98-107) mEq/L Carbon Dioxide (21-32) mEq/L Anion Gap (5-15) BUN (7-18) mg/dL Creatinine (0.7-1.3) mg/dL Est Cr Clr Drug Dosing Estimated GFR (MDRD) (>60) mL/min BUN/Creatinine Ratio (14-18) Glucose (70-99) mg/dL Lactic Acid 2.3 H* (0.4-2.0) mmol/L Calcium (8.5-10.1) mg/dL Total Bilirubin (0.2-1.0) mg/dL AST (15-37) U/L ALT (16-63) U/L Alkaline Phosphatase (46-116) U/L Troponin I (0.00-0.056) ng/mL C-Reactive Protein (<1.0) mg/dL NT-Pro-B Natriuret Pep 1140 H (0-125) pg/mL Total Protein (6.4-8.2) g/dl Albumin (3.4-5.0) g/dl Globulin gm/dL Albumin/Globulin Ratio (1-2) Urine Color Yellow (Yellow) Urine Appearance Clear (Clear) Urine pH 6.0 (5.0-8.0) Ur Specific [place] 1.020 (1.005-1.030) Urine Protein Negative (Negative) Urine Glucose (UA) Negative (Negative) Urine Ketones Negative (Negative) Urine Occult Blood Negative (Negative) Urine Nitrite Negative (Negative) Urine Bilirubin Negative (Negative) Urine Urobilinogen 2.0 H (0.2-1.0) Ur Leukocyte Esterase Negative (Negative) Urine RBC 0-5 (0-5) /hpf Urine WBC Not seen (0-5) /hpf Ur Epithelial Cells Not seen (0-5) /hpf Urine Bacteria Rare (FEW) /hpf Urine Mucus Few (FEW) /hpf Result Diagrams: 12/19/20 04:30 12/19/20 04:30 Sepsis Event Note - Evaluation Sepsis Screening Result: No Definite Risk - Focused Exam Vital Signs: Vital Signs Temp Pulse Resp BP Pulse Ox Pulse Ox 12/18/20 18:15 98 12/18/20 17:15 36.7 C 83 16 124/84 94 L Problem List Initiated/Reviewed/Updated: Yes Orders Last 24hrs: Active Orders 24 hr Category Date Time Status Patient Status [ADT] Routine ADT 12/18/20 20:50 Active Antiembolic Devices [RC] PER UNIT ROUTINE Care 12/18/20 21:19 Ordered Cardiac Monitoring [RC] CONTINUOUS Care 12/18/20 21:18 Ordered EKG Documentation Completion [RC] STAT Care 12/18/20 17:52 Active Oxygen Therapy [RC] PRN Care 12/18/20 21:18 Ordered Peripheral IV Care [RC] . DIRECTED Care 12/18/20 17:53 Active Pulse Oximetry [RC] CONTINUOUS Care 12/18/20 21:18 Ordered RT Aerosol Therapy [RC] ASDIRECTED Care 12/18/20 17:53 Active RT Aerosol Therapy [RC] ASDIRECTED Care 12/18/20 21:21 Ordered Up to Chair [RC] ASDIRECTED Care 12/18/20 21:18 Ordered VTE/DVT Education [RC] PER UNIT ROUTINE Care 12/18/20 21:18 Ordered Vital Signs [RC] Q4H Care 12/18/20 21:18 Ordered OT Evaluation and Treatment [CONS] Routine Cons 12/18/20 21:18 Ordered PT Evaluation and Treatment [CONS] Routine Cons 12/18/20 21:18 Ordered Respiratory Care Assess and Treatment [CONS] Routine Cons 12/18/20 21:18 Ordered Regular Diet [DIET] Diet 12/18/20 Breakfast Ordered CBC WITH AUTO DIFF [HEME] DAILY Lab 12/19/20 05:00 Ordered CBC WITH AUTO DIFF [HEME] DAILY Lab 12/20/20 05:00 Ordered CBC WITH AUTO DIFF [HEME] DAILY Lab 12/21/20 05:00 Ordered CBC WITH AUTO DIFF [HEME] DAILY Lab 12/22/20 05:00 Ordered CBC WITH AUTO DIFF [HEME] DAILY Lab 12/23/20 05:00 Ordered CBC WITH AUTO DIFF [HEME] DAILY Lab 12/24/20 05:00 Ordered COMPREHENSIVE METABOLIC PN,CMP [CHEM] DAILY Lab 12/19/20 05:00 Ordered COMPREHENSIVE METABOLIC PN,CMP [CHEM] DAILY Lab 12/20/20 05:00 Ordered COMPREHENSIVE METABOLIC PN,CMP [CHEM] DAILY Lab 12/21/20 05:00 Ordered COMPREHENSIVE METABOLIC PN,CMP [CHEM] DAILY Lab 12/22/20 05:00 Ordered COMPREHENSIVE METABOLIC PN,CMP [CHEM] DAILY Lab 12/23/20 05:00 Ordered COMPREHENSIVE METABOLIC PN,CMP [CHEM] DAILY Lab 12/24/20 05:00 Ordered CORONAVIRUS COVID-19 ALESSIO [MOLEC] Routine Lab 12/18/20 21:04 Received CULTURE BLOOD [BC] Stat Lab 12/18/20 19:40 Received CULTURE BLOOD [BC] Stat Lab 12/18/20 19:48 Received CULTURE MRSA [RM] Stat Lab 12/18/20 21:18 Ordered CULTURE SPUTUM + SMEAR [RM] Stat Lab 12/18/20 21:18 Ordered INR,PT,PROTHROMBIN TIME [COAG] Routine Lab 12/19/20 05:00 Ordered MAGNESIUM [CHEM] Routine Lab 12/18/20 21:18 Ordered PHOSPHORUS [CHEM] Routine Lab 12/18/20 21:18 Ordered REFLEX LACTIC ACID YES OR NO [CHEM] Routine Lab 12/18/20 20:18 Received TROPONIN I [CHEM] Routine Lab 12/18/20 21:18 Ordered Acetaminophen [TylenoL] Med 12/18/20 21:18 Ordered 650 mg PO Q6H PRN Acetaminophen/HYDROcodone [[place] 325-5 MG] Med 12/18/20 21:18 Ordered 1 tab PO Q6H PRN Albuterol/Ipratropium [DuoNeb 3.0-0.5 MG/3 ML] Med 12/18/20 21:18 Ordered 3 ml NEB Q4H PRN Azithromycin [Zithromax] 500 mg Med 12/18/20 21:30 Ordered Sodium Chloride 0.9% [Normal Saline (AdvBag)] 250 ml IV Q24H Lactated Ringers [Ringers, Lactated] 1,000 ml Med 12/18/20 21:30 Ordered IV ASDIRECTED Metoprolol Tartrate [Lopressor] Med 12/19/20 09:00 Ordered 25 mg PO BID Morphine Med 12/18/20 21:18 Ordered 2 mg IVPUSH Q4H PRN Omeprazole Med 12/19/20 09:00 Ordered 20 mg PO DAILY Promethazine [Phenergan] 12.5 mg Med 12/18/20 21:18 Ordered Sodium Chloride 0.9% [Normal Saline] 50 ml IV Q6H Sertraline [Zoloft] Med 12/19/20 09:00 Ordered 50 mg PO DAILY Sodium Chloride 0.9% [Normal Saline] 1,000 ml Med 12/18/20 20:41 Active IV NOW Sodium Chloride 0.9% [Normal Saline] 100 ml Med 12/18/20 19:45 Active IV ASDIRECTED Sodium Chloride 0.9% [Saline Flush] Med 12/18/20 19:45 Active 10 ml FLUSH ASDIRECTED Sodium Chloride 0.9% [Saline Flush] Med 12/18/20 17:52 Active 10 ml FLUSH ASDIRECTED PRN atorvaSTATin [Lipitor] Med 12/19/20 21:00 Ordered 20 mg PO BEDTIME carBAMazepine [TEGretol Tab] Med 12/18/20 21:30 Ordered 200 mg PO BID cefTRIAXone [Rocephin] 2 gm Med 12/19/20 09:00 Ordered Sodium Chloride 0.9% [Normal Saline] 100 ml IV Q24H hydrALAZINE [Apresoline] Med 12/18/20 21:26 Ordered 10 mg IVPUSH Q4H PRN lisinopriL [Prinivil] Med 12/19/20 09:00 Ordered 2.5 mg PO DAILY Blood Culture x2 Reflex Set [OM.PC] Stat Ot 12/18/20 19:00 Ordered Peripheral IV Insertion Adult [OM.PC] Stat Ot 12/18/20 17:52 Ordered Sequential Compression Device [OM.PC] Per Unit Routine Oth 12/18/20 21:19 Ordered Medication Orders Acetaminophen (Acetaminophen 325 Mg Tab) 650 mg PO Q6H PRN PRN Reason: Pain (Mild 1-3)/fever Hydrocodone Bitart/Acetaminophen (Acetaminophen/Hydrocodone 325-5 Mg Tab) 1 tab PO Q6H PRN PRN Reason: Pain (moderate 4-6) Albuterol/Ipratropium (Albuterol/Ipratropium 3.0-0.5 Mg/3 Ml Neb Soln) 3 ml NEB Q4H PRN PRN Reason: Shortness Of Breath/wheezing Atorvastatin Calcium (Atorvastatin 20 Mg Tab) 20 mg PO BEDTIME MELISSA Carbamazepine (Carbamazepine 200 Mg Tab) 200 mg PO BID MELISSA Hydralazine HCl (Hydralazine 20 Mg/Ml Sdv) 10 mg IVPUSH Q4H PRN PRN Reason: Hypertension Sodium Chloride (Normal Saline) 100 mls @ 60 mls/hr IV ASDIRECTED MELISSA Last Admin: 12/18/20 20:15 Dose: 60 mls/hr Documented by: BUSCGRE Sodium Chloride (Normal Saline) 1,000 mls @ 100 mls/hr IV NOW STA Stop: 12/19/20 06:40 Last Admin: 12/18/20 21:09 Dose: 100 mls/hr Documented by: MERVIN Lactated Ringer's (Ringers, Lactated) 1,000 mls @ 70 mls/hr IV ASDIRECTED MELISSA Promethazine HCl 12.5 mg/ (Sodium Chloride) 50.5 mls @ 100 mls/hr IV Q6H PRN PRN Reason: Nausea/Vomiting Ceftriaxone Sodium 2 gm/ (Sodium Chloride) 100 mls @ 200 mls/hr IV Q24H MELISSA Azithromycin 500 mg/ Sodium (Chloride) 250 mls @ 250 mls/hr IV Q24H MELISSA Lisinopril (Lisinopril 2.5 Mg Tab) 2.5 mg PO DAILY MELISSA Metoprolol Tartrate (Metoprolol Tartrate 50 Mg Tab) 25 mg PO BID MELISSA Morphine Sulfate (Morphine 2 Mg/Ml Syringe) 2 mg IVPUSH Q4H PRN PRN Reason: Pain (severe 7-10) Stop: 12/19/20 21:20 Non-Formulary Medication (Omeprazole) 20 mg PO DAILY MELISSA Sertraline HCl (Sertraline 50 Mg Tab) 50 mg PO DAILY MELISSA Sodium Chloride (Sodium Chloride 0.9% 10 Ml Syringe) 10 ml FLUSH ASDIRECTED PRN PRN Reason: Keep Vein Open Last Admin: 12/18/20 18:10 Dose: 10 ml Documented by: MIKKI Sodium Chloride (Sodium Chloride 0.9% 10 Ml Syringe) 10 ml FLUSH ASDIRECTED MELISSA Last Admin: 12/18/20 20:15 Dose: 10 ml Documented by: JERILYN Assessment/Plan Comment:: Patient is a 65-year-old male with a history of anemia, thrombocytopenia, 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 Assessment: Acute hypoxic respiratory failure -Etiology could be due to pneumonia, CHF (BNP 1140), COPD (diffuse emphysematous change on CT angio chest) or pulmonary lymphoadenopathy -Pulse ox -Oxygen therapy as needed to keep oxygen therapy greater than 92% Pneumonia -I will treat his pneumonia as an community-acquired pneumonia -Speech pathology consult to rule out dysphagia since he has a slurred speech -CTA chest - patchy increased density within left upper chest suspicious for small area of pneumonia -was previously treated with prednisone -Sputum culture Anemia -Most likely due to malignancy and chemotherapy -Hb 9.6, MCV 64.9, MCHC 29.7, plt 58 on admission -on chemotherapy medication, Letyboraf, was previously treated with prednisone Elevation of D-dimer -Most likely due to malignancy -Has been on Xarelto -CTA change - No PE -Wells' score for DVT - 1 points. Moderate risk group for DVT. So I will order Doppler to rule out DVT Elevation of liver enzymes AST 41, Tbil 2.0, Alk phos 274 on admission Etiologies include his malignancy to bone marrow Erdheim-Loomis disease -previously treated with prednisone. -on chemotherapy medication, Zelboraf. -Mildly prominent lymph nodes within the mediastinum as well as marked splenomegaly. Left adrenal mass appears to be present CHF? -BNP 1140 -Troponin negative -Mag 2.1 -phos 3.1 Atrial fibrillation? -as per his residential facility, he has atrial fibrillation -home med include Xarelto Hx of suicidal ideation -Denies suicidal ideation -Continue home medication sertraline, quetiapine, olanzapine, and lamotrigine Thrombocytopenia -Most likely due to malignancy and chemotherapy as well as marked splenomegaly -plt 58 on admission -on chemotherapy medication, Chadwicklboraf, was previously treated with prednisone -No evidence of bleeding -Xarelto/warfarin and aspirin is on hold Recent UTI -Per residential records, he finished a course of Bactrim on 4 December lactic acidosis -LA 4.0 on admisison. -Could be due to dehydration -I do not feel he meets the sepsis criteria. Plan: 1. Will be admitted to the hospital as an inpatient to telemetry 2. Pulse ox and oxygen therapy to keep to oxygen saturation greater than 92%. Continue incentive spirometry and Acapella 3. Azithromycin and ceftriaxone. Inhalers. Pending sputum culture 4. Continue home RN supplementation 5. Echocardiogram. Intake and output and gentle IV fluid 6. Continue to hold aspirin and anticoagulation due to severe thrombocytopenia 7. Continue IV fluid for elevation of lactic acid. Trending lactic acid 8. DVT prophylaxis: SCD 9. CODE STATUS: DNI. I explained CPR and intubation at length to him for the presence of RN. Patient agreed with CPR but declined intubation. Deposition: 1 or 2 more days SNF PT - Mortality Measure Prognosis:: Poor
[2020-12-18] MEDS: Azithromycin 500 MG in Sodium Chloride 0.9% 250 ML IV SCH (22:00)
[2020-12-18] MEDS: Lactated Ringers 1,000 ML IV SCH (22:00)
[2020-12-19] MEDS: Acetaminophen/HYDROcodone 325-5 MG Tab PO PRN ×3 (06:16→20:45)
[2020-12-19] MEDS ORDERED: Metoprolol Tartrate 50 MG Tab PO SCH (09:00)
[2020-12-19] MEDS ORDERED: Non-Formulary Medication 1 Each (Omeprazole 20 MG Cap.Cr) PO SCH (09:00)
[2020-12-19] MEDS ORDERED: Lisinopril 2.5 MG Tab PO SCH (09:00)
[2020-12-19] MEDS: Lactated Ringers 1,000 ML IV SCH ×2 (09:21→23:51)
[2020-12-19] MEDS ORDERED: traMADol 50 MG Tab PO PRN (10:06)
[2020-12-19] MEDS ORDERED: QUEtiapine 25 MG Tab PO PRN (10:17)
[2020-12-19] MEDS: Lidocaine 4% 1 each Patch TOP SCH (10:51)
[2020-12-19] MEDS: Saccharomyces Boulardii (Probiotic) 250 MG Cap PO SCH (11:05)
[2020-12-19] MEDS: Ferrous Sulfate 324 MG Tab.EC PO SCH ×2 (11:05→20:48)
[2020-12-19] MEDS: Pantoprazole 40 MG Tab.CR PO SCH (11:05)
[2020-12-19] MEDS: lamoTRIgine 100 MG Tab PO SCH ×2 (11:05→20:49)
[2020-12-19] MEDS: OLANZapine 5 MG Tab PO SCH ×2 (11:06→20:48)
[2020-12-19] MEDS: Sertraline 50 MG Tab PO SCH (11:08)
--- NOTE | 2020-12-19 13:48 | PCM.PN ---
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 Patient feels better. Less shortness of breath. But he still complains of left upper quadrant pain. He is on room air with good oxygen saturation WBC 18.13, Platelets of 48 D-dimer 1.23 Lactic acid 2.3 Creatinine 1.1 - Review of Systems Systems Review Comment:: General: Reports: No Symptoms HEENT: Reports: No Symptoms Pulmonary: Reports: Shortness of Breath, Cough, Sputum Cardiovascular: Reports: No Symptoms Gastrointestinal: Reports: No Symptoms Genitourinary: Reports: No Symptoms Musculoskeletal: Reports: No Symptoms Skin: Reports: No Symptoms Psychiatric: Reports: No Symptoms Neurological: Reports: No Symptoms Hematologic/Lymphatic: Reports: No Symptoms Immunologic: Reports: No Symptoms - Patient Data Vitals - Most Recent: Last Vital Signs Temp 36.2 C 12/19/20 11:33 Pulse 86 12/19/20 11:33 Resp 20 12/19/20 11:33 BP 127/82 12/19/20 11:33 Pulse Ox 96 12/19/20 11:33 Weight - Most Recent: 73.482 kg I&O - Last 24 Hours: Intake & Output 12/18/20 12/19/20 12/19/20 22:59 06:59 14:59 Intake Total 1950 Balance 1950 Lab Results Last 24 Hours: Laboratory Results - last 24 hr 12/18/20 12/18/20 12/18/20 Range/Units 18:00 18:00 18:00 WBC 17.75 H (4.23-9.07) K/mm3 Corrected WBC 16.1 K/mm3 RBC 4.98 (4.63-6.08) M/mm3 Hgb 9.6 L (13.7-17.5) gm/dl Hct 32.3 L (40.1-51.0) % MCV 64.9 L (79.0-92.2) fl MCH 19.3 L (25.7-32.2) pg MCHC 29.7 L (32.2-35.5) g/dl RDW Std Deviation 53.4 H (35.1-43.9) fL Plt Count 58 L (163-337) K/mm3 Neut % (Auto) Cancelled Lymph % (Auto) Cancelled [place] % (Auto) Cancelled Eos % (Auto) Cancelled Baso % (Auto) Cancelled Neut # (Auto) Cancelled Lymph # (Auto) Cancelled [place] # (Auto) Cancelled Eos # (Auto) Cancelled Baso # (Auto) Cancelled Neutrophils % (Manual) 20 L (40-60) % Band Neutrophils % 4 (0-10) % Lymphocytes % (Manual) 21 (20-40) % Atypical Lymphs % 0 % Monocytes % (Manual) 40 H (2-10) % Eosinophils % (Manual) 0 L (0.8-7.0) % Basophils % (Manual) 15 H (0.2-1.2) Nucleated RBCs 10.0 % Manual Slide Review Cancelled Platelet Estimate Marked dec Plt Morphology Comment See note Polychromasia 1+ slight Hypochromasia 2+ moderate Poikilocytosis 2+ moderate Anisocytosis 2+ moderate Microcytosis 3+ marked Target Cells 1+ slight Tear Drop Cells 1+ slight Ovalocytes 2+ moderate RBC Morph Comment Abnormal PT (9.7-12.0) SECONDS INR D-Dimer, Quantitative 1.23 H (0.19-0.50) mg/L Sodium 142 (136-145) mEq/L Potassium 3.7 (3.5-5.1) mEq/L Chloride 108 H (98-107) mEq/L Carbon Dioxide 24 (21-32) mEq/L Anion Gap 13.7 (5-15) BUN 15 (7-18) mg/dL Creatinine 1.1 (0.7-1.3) mg/dL Est Cr Clr Drug Dosing TNP Estimated GFR (MDRD) > 60 (>60) mL/min BUN/Creatinine Ratio 13.6 L (14-18) Glucose 96 (70-99) mg/dL Lactic Acid (0.4-2.0) mmol/L Calcium 7.3 L (8.5-10.1) mg/dL Phosphorus (2.6-4.7) mg/dL Magnesium (1.8-2.4) mg/dL Total Bilirubin 2.0 H (0.2-1.0) mg/dL AST 41 H (15-37) U/L ALT 25 (16-63) U/L Alkaline Phosphatase 274 H (46-116) U/L Troponin I < 0.017 (0.00-0.056) ng/mL C-Reactive Protein 5.3 H* (<1.0) mg/dL NT-Pro-B Natriuret Pep (0-125) pg/mL Total Protein 5.1 L (6.4-8.2) g/dl Albumin 2.4 L (3.4-5.0) g/dl Globulin 2.7 gm/dL Albumin/Globulin Ratio 0.9 L (1-2) Urine Color (Yellow) Urine Appearance (Clear) Urine pH (5.0-8.0) Ur Specific [place] (1.005-1.030) Urine Protein (Negative) Urine Glucose (UA) (Negative) Urine Ketones (Negative) Urine Occult Blood (Negative) Urine Nitrite (Negative) Urine Bilirubin (Negative) Urine Urobilinogen (0.2-1.0) Ur Leukocyte Esterase (Negative) Urine RBC (0-5) /hpf Urine WBC (0-5) /hpf Ur Epithelial Cells (0-5) /hpf Urine Bacteria (FEW) /hpf Urine Mucus (FEW) /hpf SARS-CoV-2 RNA (ALESSIO) (NEGATIVE) MRSA (PCR) 12/18/20 12/18/20 12/18/20 Range/Units 18:00 19:33 19:40 WBC (4.23-9.07) K/mm3 Corrected WBC K/mm3 RBC (4.63-6.08) M/mm3 Hgb (13.7-17.5) gm/dl Hct (40.1-51.0) % MCV (79.0-92.2) fl MCH (25.7-32.2) pg MCHC (32.2-35.5) g/dl RDW Std Deviation (35.1-43.9) fL Plt Count (163-337) K/mm3 Neut % (Auto) Lymph % (Auto) [place] % (Auto) Eos % (Auto) Baso % (Auto) Neut # (Auto) Lymph # (Auto) [place] # (Auto) Eos # (Auto) Baso # (Auto) Neutrophils % (Manual) (40-60) % Band Neutrophils % (0-10) % Lymphocytes % (Manual) (20-40) % Atypical Lymphs % % Monocytes % (Manual) (2-10) % Eosinophils % (Manual) (0.8-7.0) % Basophils % (Manual) (0.2-1.2) Nucleated RBCs % Manual Slide Review Platelet Estimate Plt Morphology Comment Polychromasia Hypochromasia Poikilocytosis Anisocytosis Microcytosis Target Cells Tear Drop Cells Ovalocytes RBC Morph Comment PT (9.7-12.0) SECONDS INR D-Dimer, Quantitative (0.19-0.50) mg/L Sodium (136-145) mEq/L Potassium (3.5-5.1) mEq/L Chloride (98-107) mEq/L Carbon Dioxide (21-32) mEq/L Anion Gap (5-15) BUN (7-18) mg/dL Creatinine (0.7-1.3) mg/dL Est Cr Clr Drug Dosing Estimated GFR (MDRD) (>60) mL/min BUN/Creatinine Ratio (14-18) Glucose (70-99) mg/dL Lactic Acid 2.3 H* (0.4-2.0) mmol/L Calcium (8.5-10.1) mg/dL Phosphorus (2.6-4.7) mg/dL Magnesium (1.8-2.4) mg/dL Total Bilirubin (0.2-1.0) mg/dL AST (15-37) U/L ALT (16-63) U/L Alkaline Phosphatase (46-116) U/L Troponin I (0.00-0.056) ng/mL C-Reactive Protein (<1.0) mg/dL NT-Pro-B Natriuret Pep 1140 H (0-125) pg/mL Total Protein (6.4-8.2) g/dl Albumin (3.4-5.0) g/dl Globulin gm/dL Albumin/Globulin Ratio (1-2) Urine Color Yellow (Yellow) Urine Appearance Clear (Clear) Urine pH 6.0 (5.0-8.0) Ur Specific [place] 1.020 (1.005-1.030) Urine Protein Negative (Negative) Urine Glucose (UA) Negative (Negative) Urine Ketones Negative (Negative) Urine Occult Blood Negative (Negative) Urine Nitrite Negative (Negative) Urine Bilirubin Negative (Negative) Urine Urobilinogen 2.0 H (0.2-1.0) Ur Leukocyte Esterase Negative (Negative) Urine RBC 0-5 (0-5) /hpf Urine WBC Not seen (0-5) /hpf Ur Epithelial Cells Not seen (0-5) /hpf Urine Bacteria Rare (FEW) /hpf Urine Mucus Few (FEW) /hpf SARS-CoV-2 RNA (ALESSIO) (NEGATIVE) MRSA (PCR) 12/18/20 12/18/20 12/18/20 Range/Units 21:04 21:45 22:24 WBC (4.23-9.07) K/mm3 Corrected WBC K/mm3 RBC (4.63-6.08) M/mm3 Hgb (13.7-17.5) gm/dl Hct (40.1-51.0) % MCV (79.0-92.2) fl MCH (25.7-32.2) pg MCHC (32.2-35.5) g/dl RDW Std Deviation (35.1-43.9) fL Plt Count (163-337) K/mm3 Neut % (Auto) Lymph % (Auto) [place] % (Auto) Eos % (Auto) Baso % (Auto) Neut # (Auto) Lymph # (Auto) [place] # (Auto) Eos # (Auto) Baso # (Auto) Neutrophils % (Manual) (40-60) % Band Neutrophils % (0-10) % Lymphocytes % (Manual) (20-40) % Atypical Lymphs % % Monocytes % (Manual) (2-10) % Eosinophils % (Manual) (0.8-7.0) % Basophils % (Manual) (0.2-1.2) Nucleated RBCs % Manual Slide Review Platelet Estimate Plt Morphology Comment Polychromasia Hypochromasia Poikilocytosis Anisocytosis Microcytosis Target Cells Tear Drop Cells Ovalocytes RBC Morph Comment PT (9.7-12.0) SECONDS INR D-Dimer, Quantitative (0.19-0.50) mg/L Sodium (136-145) mEq/L Potassium (3.5-5.1) mEq/L Chloride (98-107) mEq/L Carbon Dioxide (21-32) mEq/L Anion Gap (5-15) BUN (7-18) mg/dL Creatinine (0.7-1.3) mg/dL Est Cr Clr Drug Dosing Estimated GFR (MDRD) (>60) mL/min BUN/Creatinine Ratio (14-18) Glucose (70-99) mg/dL Lactic Acid (0.4-2.0) mmol/L Calcium (8.5-10.1) mg/dL Phosphorus 3.1 (2.6-4.7) mg/dL Magnesium 2.1 (1.8-2.4) mg/dL Total Bilirubin (0.2-1.0) mg/dL AST (15-37) U/L ALT (16-63) U/L Alkaline Phosphatase (46-116) U/L Troponin I < 0.017 (0.00-0.056) ng/mL C-Reactive Protein (<1.0) mg/dL NT-Pro-B Natriuret Pep (0-125) pg/mL Total Protein (6.4-8.2) g/dl Albumin (3.4-5.0) g/dl Globulin gm/dL Albumin/Globulin Ratio (1-2) Urine Color (Yellow) Urine Appearance (Clear) Urine pH (5.0-8.0) Ur Specific [place] (1.005-1.030) Urine Protein (Negative) Urine Glucose (UA) (Negative) Urine Ketones (Negative) Urine Occult Blood (Negative) Urine Nitrite (Negative) Urine Bilirubin (Negative) Urine Urobilinogen (0.2-1.0) Ur Leukocyte Esterase (Negative) Urine RBC (0-5) /hpf Urine WBC (0-5) /hpf Ur Epithelial Cells (0-5) /hpf Urine Bacteria (FEW) /hpf Urine Mucus (FEW) /hpf SARS-CoV-2 RNA (ALESSIO) Negative (NEGATIVE) MRSA (PCR) Negative 12/18/20 12/19/20 12/19/20 Range/Units 22:40 02:10 04:30 WBC 18.13 H (4.23-9.07) K/mm3 Corrected WBC K/mm3 RBC 4.68 (4.63-6.08) M/mm3 Hgb 9.0 L (13.7-17.5) gm/dl Hct 30.4 L (40.1-51.0) % MCV 65.0 L (79.0-92.2) fl MCH 19.2 L (25.7-32.2) pg MCHC 29.6 L (32.2-35.5) g/dl RDW Std Deviation 53.9 H (35.1-43.9) fL Plt Count 48 L (163-337) K/mm3 Neut % (Auto) Lymph % (Auto) [place] % (Auto) 35.0 H Eos % (Auto) 0.2 L Baso % (Auto) 1.8 H Neut # (Auto) Lymph # (Auto) [place] # (Auto) 6.35 H Eos # (Auto) 0.03 L Baso # (Auto) 0.32 H Neutrophils % (Manual) (40-60) % Band Neutrophils % (0-10) % Lymphocytes % (Manual) (20-40) % Atypical Lymphs % % Monocytes % (Manual) (2-10) % Eosinophils % (Manual) (0.8-7.0) % Basophils % (Manual) (0.2-1.2) Nucleated RBCs % Manual Slide Review Abnormal smear Platelet Estimate Plt Morphology Comment Polychromasia Hypochromasia Poikilocytosis Anisocytosis Microcytosis Target Cells Tear Drop Cells Ovalocytes RBC Morph Comment PT (9.7-12.0) SECONDS INR D-Dimer, Quantitative (0.19-0.50) mg/L Sodium (136-145) mEq/L Potassium (3.5-5.1) mEq/L Chloride (98-107) mEq/L Carbon Dioxide (21-32) mEq/L Anion Gap (5-15) BUN (7-18) mg/dL Creatinine (0.7-1.3) mg/dL Est Cr Clr Drug Dosing Estimated GFR (MDRD) (>60) mL/min BUN/Creatinine Ratio (14-18) Glucose (70-99) mg/dL Lactic Acid 4.0 H* 2.4 H* (0.4-2.0) mmol/L Calcium (8.5-10.1) mg/dL Phosphorus (2.6-4.7) mg/dL Magnesium (1.8-2.4) mg/dL Total Bilirubin (0.2-1.0) mg/dL AST (15-37) U/L ALT (16-63) U/L Alkaline Phosphatase (46-116) U/L Troponin I (0.00-0.056) ng/mL C-Reactive Protein (<1.0) mg/dL NT-Pro-B Natriuret Pep (0-125) pg/mL Total Protein (6.4-8.2) g/dl Albumin (3.4-5.0) g/dl Globulin gm/dL Albumin/Globulin Ratio (1-2) Urine Color (Yellow) Urine Appearance (Clear) Urine pH (5.0-8.0) Ur Specific [place] (1.005-1.030) Urine Protein (Negative) Urine Glucose (UA) (Negative) Urine Ketones (Negative) Urine Occult Blood (Negative) Urine Nitrite (Negative) Urine Bilirubin (Negative) Urine Urobilinogen (0.2-1.0) Ur Leukocyte Esterase (Negative) Urine RBC (0-5) /hpf Urine WBC (0-5) /hpf Ur Epithelial Cells (0-5) /hpf Urine Bacteria (FEW) /hpf Urine Mucus (FEW) /hpf SARS-CoV-2 RNA (ALESSIO) (NEGATIVE) MRSA (PCR) 12/19/20 12/19/20 12/19/20 Range/Units 04:30 04:30 04:30 WBC (4.23-9.07) K/mm3 Corrected WBC K/mm3 RBC (4.63-6.08) M/mm3 Hgb (13.7-17.5) gm/dl Hct (40.1-51.0) % MCV (79.0-92.2) fl MCH (25.7-32.2) pg MCHC (32.2-35.5) g/dl RDW Std Deviation (35.1-43.9) fL Plt Count (163-337) K/mm3 Neut % (Auto) Lymph % (Auto) [place] % (Auto) Eos % (Auto) Baso % (Auto) Neut # (Auto) Lymph # (Auto) [place] # (Auto) Eos # (Auto) Baso # (Auto) Neutrophils % (Manual) (40-60) % Band Neutrophils % (0-10) % Lymphocytes % (Manual) (20-40) % Atypical Lymphs % % Monocytes % (Manual) (2-10) % Eosinophils % (Manual) (0.8-7.0) % Basophils % (Manual) (0.2-1.2) Nucleated RBCs % Manual Slide Review Platelet Estimate Plt Morphology Comment Polychromasia Hypochromasia Poikilocytosis Anisocytosis Microcytosis Target Cells Tear Drop Cells Ovalocytes RBC Morph Comment PT 15.1 H (9.7-12.0) SECONDS INR 1.42 D-Dimer, Quantitative (0.19-0.50) mg/L Sodium 144 (136-145) mEq/L Potassium 4.3 (3.5-5.1) mEq/L Chloride 111 H (98-107) mEq/L Carbon Dioxide 26 (21-32) mEq/L Anion Gap 11.3 (5-15) BUN 12 (7-18) mg/dL Creatinine 1.1 (0.7-1.3) mg/dL Est Cr Clr Drug Dosing 68.74 Estimated GFR (MDRD) > 60 (>60) mL/min BUN/Creatinine Ratio 10.9 L (14-18) Glucose 90 (70-99) mg/dL Lactic Acid (0.4-2.0) mmol/L Calcium 7.4 L (8.5-10.1) mg/dL Phosphorus (2.6-4.7) mg/dL Magnesium (1.8-2.4) mg/dL Total Bilirubin 1.6 H (0.2-1.0) mg/dL AST 43 H (15-37) U/L ALT 26 (16-63) U/L Alkaline Phosphatase 260 H (46-116) U/L Troponin I (0.00-0.056) ng/mL C-Reactive Protein (<1.0) mg/dL NT-Pro-B Natriuret Pep 1336 H (0-125) pg/mL Total Protein 4.9 L (6.4-8.2) g/dl Albumin 2.3 L (3.4-5.0) g/dl Globulin 2.6 gm/dL Albumin/Globulin Ratio 0.9 L (1-2) Urine Color (Yellow) Urine Appearance (Clear) Urine pH (5.0-8.0) Ur Specific [place] (1.005-1.030) Urine Protein (Negative) Urine Glucose (UA) (Negative) Urine Ketones (Negative) Urine Occult Blood (Negative) Urine Nitrite (Negative) Urine Bilirubin (Negative) Urine Urobilinogen (0.2-1.0) Ur Leukocyte Esterase (Negative) Urine RBC (0-5) /hpf Urine WBC (0-5) /hpf Ur Epithelial Cells (0-5) /hpf Urine Bacteria (FEW) /hpf Urine Mucus (FEW) /hpf SARS-CoV-2 RNA (ALESSIO) (NEGATIVE) MRSA (PCR) 12/19/20 Range/Units 04:30 WBC (4.23-9.07) K/mm3 Corrected WBC K/mm3 RBC (4.63-6.08) M/mm3 Hgb (13.7-17.5) gm/dl Hct (40.1-51.0) % MCV (79.0-92.2) fl MCH (25.7-32.2) pg MCHC (32.2-35.5) g/dl RDW Std Deviation (35.1-43.9) fL Plt Count (163-337) K/mm3 Neut % (Auto) Lymph % (Auto) [place] % (Auto) Eos % (Auto) Baso % (Auto) Neut # (Auto) Lymph # (Auto) [place] # (Auto) Eos # (Auto) Baso # (Auto) Neutrophils % (Manual) (40-60) % Band Neutrophils % (0-10) % Lymphocytes % (Manual) (20-40) % Atypical Lymphs % % Monocytes % (Manual) (2-10) % Eosinophils % (Manual) (0.8-7.0) % Basophils % (Manual) (0.2-1.2) Nucleated RBCs % Manual Slide Review Platelet Estimate Plt Morphology Comment Polychromasia Hypochromasia Poikilocytosis Anisocytosis Microcytosis Target Cells Tear Drop Cells Ovalocytes RBC Morph Comment PT (9.7-12.0) SECONDS INR D-Dimer, Quantitative (0.19-0.50) mg/L Sodium (136-145) mEq/L Potassium (3.5-5.1) mEq/L Chloride (98-107) mEq/L Carbon Dioxide (21-32) mEq/L Anion Gap (5-15) BUN (7-18) mg/dL Creatinine (0.7-1.3) mg/dL Est Cr Clr Drug Dosing Estimated GFR (MDRD) (>60) mL/min BUN/Creatinine Ratio (14-18) Glucose (70-99) mg/dL Lactic Acid 2.3 H* (0.4-2.0) mmol/L Calcium (8.5-10.1) mg/dL Phosphorus (2.6-4.7) mg/dL Magnesium (1.8-2.4) mg/dL Total Bilirubin (0.2-1.0) mg/dL AST (15-37) U/L ALT (16-63) U/L Alkaline Phosphatase (46-116) U/L Troponin I (0.00-0.056) ng/mL C-Reactive Protein (<1.0) mg/dL NT-Pro-B Natriuret Pep (0-125) pg/mL Total Protein (6.4-8.2) g/dl Albumin (3.4-5.0) g/dl Globulin gm/dL Albumin/Globulin Ratio (1-2) Urine Color (Yellow) Urine Appearance (Clear) Urine pH (5.0-8.0) Ur Specific [place] (1.005-1.030) Urine Protein (Negative) Urine Glucose (UA) (Negative) Urine Ketones (Negative) Urine Occult Blood (Negative) Urine Nitrite (Negative) Urine Bilirubin (Negative) Urine Urobilinogen (0.2-1.0) Ur Leukocyte Esterase (Negative) Urine RBC (0-5) /hpf Urine WBC (0-5) /hpf Ur Epithelial Cells (0-5) /hpf Urine Bacteria (FEW) /hpf Urine Mucus (FEW) /hpf SARS-CoV-2 RNA (ALESSIO) (NEGATIVE) MRSA (PCR) Med Orders - Current: Current Medications Acetaminophen (Acetaminophen 325 Mg Tab) 650 mg PO Q6H PRN PRN Reason: Pain (Mild 1-3)/fever Hydrocodone Bitart/Acetaminophen (Acetaminophen/Hydrocodone 325-5 Mg Tab) 1 tab PO Q6H PRN PRN Reason: Pain (moderate 4-6) Last Admin: 12/19/20 06:16 Dose: 1 tab Documented by: Albuterol/Ipratropium (Albuterol/Ipratropium 3.0-0.5 Mg/3 Ml Neb Soln) 3 ml NEB Q4H PRN PRN Reason: Shortness Of Breath/wheezing Last Admin: 12/19/20 00:00 Dose: 3 ml Documented by: Atorvastatin Calcium (Atorvastatin 20 Mg Tab) 20 mg PO BEDTIME MELISSA Ferrous Sulfate (Ferrous Sulfate 324 Mg Tab.Ec) 324 mg PO BID MELISSA Last Admin: 12/19/20 11:05 Dose: 324 mg Documented by: Hydralazine HCl (Hydralazine 20 Mg/Ml Sdv) 10 mg IVPUSH Q4H PRN PRN Reason: Hypertension Lactated Ringer's (Ringers, Lactated) 1,000 mls @ 70 mls/hr IV ASDIRECTED [facility] Last Admin: 12/19/20 09:21 Dose: 70 mls/hr Documented by: Promethazine HCl 12.5 mg/ (Sodium Chloride) 50.5 mls @ 100 mls/hr IV Q6H PRN PRN Reason: Nausea/Vomiting Ceftriaxone Sodium 2 gm/ (Sodium Chloride) 100 mls @ 200 mls/hr IV Q24H MELISSA Azithromycin 500 mg/ Sodium (Chloride) 250 mls @ 250 mls/hr IV Q24H [facility] Last Admin: 12/18/20 22:00 Dose: 250 mls/hr Documented by: Lamotrigine (Lamotrigine 100 Mg Tab) 100 mg PO BEDTIME [facility] Lamotrigine (Lamotrigine 100 Mg Tab) 100 mg PO DAILY [facility] Last Admin: 12/19/20 11:05 Dose: 100 mg Documented by: Lidocaine (Lidocaine 4% 1 Each Patch) 1 each TOP DAILY [facility] Last Admin: 12/19/20 10:51 Dose: 1 each Documented by: Melatonin (Melatonin 3 Mg Tab) 3 mg PO BEDTIME [facility] Miscellaneous Information (Remove Lidocaine Patch) 1 ea TRDERM Q24H [facility] Morphine Sulfate (Morphine 2 Mg/Ml Syringe) 2 mg IVPUSH Q4H PRN PRN Reason: Pain (severe 7-10) Stop: 12/19/20 21:20 Last Admin: 12/19/20 09:26 Dose: 2 mg Documented by: Vemurafenib [ Zelboraf] 240 Mg Tablet Ptom 0 mg PO BID [facility] Olanzapine (Olanzapine 5 Mg Tab) 10 mg PO DAILY [facility] Last Admin: 12/19/20 11:06 Dose: 10 mg Documented by: Olanzapine (Olanzapine 5 Mg Tab) 20 mg PO BEDTIME [facility] Pantoprazole Sodium (Pantoprazole 40 Mg Tab.Cr) 40 mg PO DAILY [facility] Last Admin: 12/19/20 11:05 Dose: 40 mg Documented by: Quetiapine Fumarate (Quetiapine 25 Mg Tab) 50 mg PO Q8H PRN PRN Reason: Agitation Saccharomyces Boulardii (Saccharomyces Boulardii (Probiotic) 250 Mg Cap) 250 mg PO DAILY [facility] Last Admin: 12/19/20 11:05 Dose: 250 mg Documented by: Sertraline HCl (Sertraline 50 Mg Tab) 100 mg PO DAILY [facility] Last Admin: 12/19/20 11:08 Dose: 100 mg Documented by: Sodium Chloride (Sodium Chloride 0.9% 10 Ml Syringe) 10 ml FLUSH ASDIRECTED [facility] Last Admin: 12/18/20 20:15 Dose: 10 ml Documented by: Discontinued Medications Albuterol/Ipratropium (Albuterol/Ipratropium 3.0-0.5 Mg/3 Ml Neb Soln) 3 ml NEB ONETIME ONE Stop: 12/18/20 17:54 Last Admin: 12/18/20 18:15 Dose: 3 ml Documented by: Sodium Chloride (Normal Saline) 100 mls @ 60 mls/hr IV ASDIRECTED [facility] Last Admin: 12/18/20 20:15 Dose: 60 mls/hr Documented by: Ceftriaxone Sodium 2 gm/ (Sodium Chloride) 100 mls @ 200 mls/hr IV ONETIME ONE Stop: 12/18/20 21:07 Last Admin: 12/18/20 21:09 Dose: 200 mls/hr Documented by: Sodium Chloride (Normal Saline) 1,000 mls @ 100 mls/hr IV NOW STA Stop: 12/19/20 06:40 Last Admin: 12/18/20 21:09 Dose: 100 mls/hr Documented by: Iopamidol (Iopamidol 755 Mg/Ml 100 Ml Bottle) 100 ml IVPUSH ONETIME ONE Stop: 12/18/20 19:32 Last Admin: 12/18/20 20:14 Dose: 100 ml Documented by: Non-Formulary Medication (Omeprazole) 20 mg PO DAILY [facility] Last Admin: 12/19/20 12:26 Dose: Not Given Documented by: Sodium Chloride (Sodium Chloride 0.9% 10 Ml Syringe) 10 ml FLUSH ASDIRECTED PRN PRN Reason: Keep Vein Open Last Admin: 12/18/20 18:10 Dose: 10 ml Documented by: Tramadol HCl (Tramadol 50 Mg Tab) 50 mg PO BID PRN PRN Reason: Pain - Exam Physical Findings Comments:: General: Alert, Oriented, Cooperative HEENT: Conjunctiva Clear, EOMI, Pupils Equal, Pupils Reactive Neck: Supple, Full Range of Motion Lungs: Clear to Auscultation, Normal Respiratory Effort Cardiovascular: Irregular Rhythm GI/Abdominal Exam: Normal Bowel Sounds, Soft, Tender (Over left upper quadrant) Extremities: Normal Inspection, Normal Range of Motion, Non-Tender, No Pedal Edema Neurological: Cranial Nerves Intact, Strength Equal Bilateral, Normal Tone, Sensation Intact, Other (Has been having slurred speech for 3 years) Neuro Extensive - Mental Status: Alert, Normal Mood/Affect Psychiatric: Normal Affect, Normal Mood - Patient Data Lab Results Last 24 hrs: Laboratory Results - last 24 hr 12/18/20 12/18/20 12/18/20 Range/Units 18:00 18:00 18:00 WBC 17.75 H (4.23-9.07) K/mm3 Corrected WBC 16.1 K/mm3 RBC 4.98 (4.63-6.08) M/mm3 Hgb 9.6 L (13.7-17.5) gm/dl Hct 32.3 L (40.1-51.0) % MCV 64.9 L (79.0-92.2) fl MCH 19.3 L (25.7-32.2) pg MCHC 29.7 L (32.2-35.5) g/dl RDW Std Deviation 53.4 H (35.1-43.9) fL Plt Count 58 L (163-337) K/mm3 Neut % (Auto) Cancelled Lymph % (Auto) Cancelled [place] % (Auto) Cancelled Eos % (Auto) Cancelled Baso % (Auto) Cancelled Neut # (Auto) Cancelled Lymph # (Auto) Cancelled [place] # (Auto) Cancelled Eos # (Auto) Cancelled Baso # (Auto) Cancelled Neutrophils % (Manual) 20 L (40-60) % Band Neutrophils % 4 (0-10) % Lymphocytes % (Manual) 21 (20-40) % Atypical Lymphs % 0 % Monocytes % (Manual) 40 H (2-10) % Eosinophils % (Manual) 0 L (0.8-7.0) % Basophils % (Manual) 15 H (0.2-1.2) Nucleated RBCs 10.0 % Manual Slide Review Cancelled Platelet Estimate Marked dec Plt Morphology Comment See note Polychromasia 1+ slight Hypochromasia 2+ moderate Poikilocytosis 2+ moderate Anisocytosis 2+ moderate Microcytosis 3+ marked Target Cells 1+ slight Tear Drop Cells 1+ slight Ovalocytes 2+ moderate RBC Morph Comment Abnormal PT (9.7-12.0) SECONDS INR D-Dimer, Quantitative 1.23 H (0.19-0.50) mg/L Sodium 142 (136-145) mEq/L Potassium 3.7 (3.5-5.1) mEq/L Chloride 108 H (98-107) mEq/L Carbon Dioxide 24 (21-32) mEq/L Anion Gap 13.7 (5-15) BUN 15 (7-18) mg/dL Creatinine 1.1 (0.7-1.3) mg/dL Est Cr Clr Drug Dosing TNP Estimated GFR (MDRD) > 60 (>60) mL/min BUN/Creatinine Ratio 13.6 L (14-18) Glucose 96 (70-99) mg/dL Lactic Acid (0.4-2.0) mmol/L Calcium 7.3 L (8.5-10.1) mg/dL Phosphorus (2.6-4.7) mg/dL Magnesium (1.8-2.4) mg/dL Total Bilirubin 2.0 H (0.2-1.0) mg/dL AST 41 H (15-37) U/L ALT 25 (16-63) U/L Alkaline Phosphatase 274 H (46-116) U/L Troponin I < 0.017 (0.00-0.056) ng/mL C-Reactive Protein 5.3 H* (<1.0) mg/dL NT-Pro-B Natriuret Pep (0-125) pg/mL Total Protein 5.1 L (6.4-8.2) g/dl Albumin 2.4 L (3.4-5.0) g/dl Globulin 2.7 gm/dL Albumin/Globulin Ratio 0.9 L (1-2) Urine Color (Yellow) Urine Appearance (Clear) Urine pH (5.0-8.0) Ur Specific [place] (1.005-1.030) Urine Protein (Negative) Urine Glucose (UA) (Negative) Urine Ketones (Negative) Urine Occult Blood (Negative) Urine Nitrite (Negative) Urine Bilirubin (Negative) Urine Urobilinogen (0.2-1.0) Ur Leukocyte Esterase (Negative) Urine RBC (0-5) /hpf Urine WBC (0-5) /hpf Ur Epithelial Cells (0-5) /hpf Urine Bacteria (FEW) /hpf Urine Mucus (FEW) /hpf SARS-CoV-2 RNA (ALESSIO) (NEGATIVE) MRSA (PCR) 12/18/20 12/18/20 12/18/20 Range/Units 18:00 19:33 19:40 WBC (4.23-9.07) K/mm3 Corrected WBC K/mm3 RBC (4.63-6.08) M/mm3 Hgb (13.7-17.5) gm/dl Hct (40.1-51.0) % MCV (79.0-92.2) fl MCH (25.7-32.2) pg MCHC (32.2-35.5) g/dl RDW Std Deviation (35.1-43.9) fL Plt Count (163-337) K/mm3 Neut % (Auto) Lymph % (Auto) [place] % (Auto) Eos % (Auto) Baso % (Auto) Neut # (Auto) Lymph # (Auto) [place] # (Auto) Eos # (Auto) Baso # (Auto) Neutrophils % (Manual) (40-60) % Band Neutrophils % (0-10) % Lymphocytes % (Manual) (20-40) % Atypical Lymphs % % Monocytes % (Manual) (2-10) % Eosinophils % (Manual) (0.8-7.0) % Basophils % (Manual) (0.2-1.2) Nucleated RBCs % Manual Slide Review Platelet Estimate Plt Morphology Comment Polychromasia Hypochromasia Poikilocytosis Anisocytosis Microcytosis Target Cells Tear Drop Cells Ovalocytes RBC Morph Comment PT (9.7-12.0) SECONDS INR D-Dimer, Quantitative (0.19-0.50) mg/L Sodium (136-145) mEq/L Potassium (3.5-5.1) mEq/L Chloride (98-107) mEq/L Carbon Dioxide (21-32) mEq/L Anion Gap (5-15) BUN (7-18) mg/dL Creatinine (0.7-1.3) mg/dL Est Cr Clr Drug Dosing Estimated GFR (MDRD) (>60) mL/min BUN/Creatinine Ratio (14-18) Glucose (70-99) mg/dL Lactic Acid 2.3 H* (0.4-2.0) mmol/L Calcium (8.5-10.1) mg/dL Phosphorus (2.6-4.7) mg/dL Magnesium (1.8-2.4) mg/dL Total Bilirubin (0.2-1.0) mg/dL AST (15-37) U/L ALT (16-63) U/L Alkaline Phosphatase (46-116) U/L Troponin I (0.00-0.056) ng/mL C-Reactive Protein (<1.0) mg/dL NT-Pro-B Natriuret Pep 1140 H (0-125) pg/mL Total Protein (6.4-8.2) g/dl Albumin (3.4-5.0) g/dl Globulin gm/dL Albumin/Globulin Ratio (1-2) Urine Color Yellow (Yellow) Urine Appearance Clear (Clear) Urine pH 6.0 (5.0-8.0) Ur Specific [place] 1.020 (1.005-1.030) Urine Protein Negative (Negative) Urine Glucose (UA) Negative (Negative) Urine Ketones Negative (Negative) Urine Occult Blood Negative (Negative) Urine Nitrite Negative (Negative) Urine Bilirubin Negative (Negative) Urine Urobilinogen 2.0 H (0.2-1.0) Ur Leukocyte Esterase Negative (Negative) Urine RBC 0-5 (0-5) /hpf Urine WBC Not seen (0-5) /hpf Ur Epithelial Cells Not seen (0-5) /hpf Urine Bacteria Rare (FEW) /hpf Urine Mucus Few (FEW) /hpf SARS-CoV-2 RNA (ALESSIO) (NEGATIVE) MRSA (PCR) 12/18/20 12/18/20 12/18/20 Range/Units 21:04 21:45 22:24 WBC (4.23-9.07) K/mm3 Corrected WBC K/mm3 RBC (4.63-6.08) M/mm3 Hgb (13.7-17.5) gm/dl Hct (40.1-51.0) % MCV (79.0-92.2) fl MCH (25.7-32.2) pg MCHC (32.2-35.5) g/dl RDW Std Deviation (35.1-43.9) fL Plt Count (163-337) K/mm3 Neut % (Auto) Lymph % (Auto) [place] % (Auto) Eos % (Auto) Baso % (Auto) Neut # (Auto) Lymph # (Auto) [place] # (Auto) Eos # (Auto) Baso # (Auto) Neutrophils % (Manual) (40-60) % Band Neutrophils % (0-10) % Lymphocytes % (Manual) (20-40) % Atypical Lymphs % % Monocytes % (Manual) (2-10) % Eosinophils % (Manual) (0.8-7.0) % Basophils % (Manual) (0.2-1.2) Nucleated RBCs % Manual Slide Review Platelet Estimate Plt Morphology Comment Polychromasia Hypochromasia Poikilocytosis Anisocytosis Microcytosis Target Cells Tear Drop Cells Ovalocytes RBC Morph Comment PT (9.7-12.0) SECONDS INR D-Dimer, Quantitative (0.19-0.50) mg/L Sodium (136-145) mEq/L Potassium (3.5-5.1) mEq/L Chloride (98-107) mEq/L Carbon Dioxide (21-32) mEq/L Anion Gap (5-15) BUN (7-18) mg/dL Creatinine (0.7-1.3) mg/dL Est Cr Clr Drug Dosing Estimated GFR (MDRD) (>60) mL/min BUN/Creatinine Ratio (14-18) Glucose (70-99) mg/dL Lactic Acid (0.4-2.0) mmol/L Calcium (8.5-10.1) mg/dL Phosphorus 3.1 (2.6-4.7) mg/dL Magnesium 2.1 (1.8-2.4) mg/dL Total Bilirubin (0.2-1.0) mg/dL AST (15-37) U/L ALT (16-63) U/L Alkaline Phosphatase (46-116) U/L Troponin I < 0.017 (0.00-0.056) ng/mL C-Reactive Protein (<1.0) mg/dL NT-Pro-B Natriuret Pep (0-125) pg/mL Total Protein (6.4-8.2) g/dl Albumin (3.4-5.0) g/dl Globulin gm/dL Albumin/Globulin Ratio (1-2) Urine Color (Yellow) Urine Appearance (Clear) Urine pH (5.0-8.0) Ur Specific [place] (1.005-1.030) Urine Protein (Negative) Urine Glucose (UA) (Negative) Urine Ketones (Negative) Urine Occult Blood (Negative) Urine Nitrite (Negative) Urine Bilirubin (Negative) Urine Urobilinogen (0.2-1.0) Ur Leukocyte Esterase (Negative) Urine RBC (0-5) /hpf Urine WBC (0-5) /hpf Ur Epithelial Cells (0-5) /hpf Urine Bacteria (FEW) /hpf Urine Mucus (FEW) /hpf SARS-CoV-2 RNA (ALESSIO) Negative (NEGATIVE) MRSA (PCR) Negative 12/18/20 12/19/20 12/19/20 Range/Units 22:40 02:10 04:30 WBC 18.13 H (4.23-9.07) K/mm3 Corrected WBC K/mm3 RBC 4.68 (4.63-6.08) M/mm3 Hgb 9.0 L (13.7-17.5) gm/dl Hct 30.4 L (40.1-51.0) % MCV 65.0 L (79.0-92.2) fl MCH 19.2 L (25.7-32.2) pg MCHC 29.6 L (32.2-35.5) g/dl RDW Std Deviation 53.9 H (35.1-43.9) fL Plt Count 48 L (163-337) K/mm3 Neut % (Auto) Lymph % (Auto) [place] % (Auto) 35.0 H Eos % (Auto) 0.2 L Baso % (Auto) 1.8 H Neut # (Auto) Lymph # (Auto) [place] # (Auto) 6.35 H Eos # (Auto) 0.03 L Baso # (Auto) 0.32 H Neutrophils % (Manual) (40-60) % Band Neutrophils % (0-10) % Lymphocytes % (Manual) (20-40) % Atypical Lymphs % % Monocytes % (Manual) (2-10) % Eosinophils % (Manual) (0.8-7.0) % Basophils % (Manual) (0.2-1.2) Nucleated RBCs % Manual Slide Review Abnormal smear Platelet Estimate Plt Morphology Comment Polychromasia Hypochromasia Poikilocytosis Anisocytosis Microcytosis Target Cells Tear Drop Cells Ovalocytes RBC Morph Comment PT (9.7-12.0) SECONDS INR D-Dimer, Quantitative (0.19-0.50) mg/L Sodium (136-145) mEq/L Potassium (3.5-5.1) mEq/L Chloride (98-107) mEq/L Carbon Dioxide (21-32) mEq/L Anion Gap (5-15) BUN (7-18) mg/dL Creatinine (0.7-1.3) mg/dL Est Cr Clr Drug Dosing Estimated GFR (MDRD) (>60) mL/min BUN/Creatinine Ratio (14-18) Glucose (70-99) mg/dL Lactic Acid 4.0 H* 2.4 H* (0.4-2.0) mmol/L Calcium (8.5-10.1) mg/dL Phosphorus (2.6-4.7) mg/dL Magnesium (1.8-2.4) mg/dL Total Bilirubin (0.2-1.0) mg/dL AST (15-37) U/L ALT (16-63) U/L Alkaline Phosphatase (46-116) U/L Troponin I (0.00-0.056) ng/mL C-Reactive Protein (<1.0) mg/dL NT-Pro-B Natriuret Pep (0-125) pg/mL Total Protein (6.4-8.2) g/dl Albumin (3.4-5.0) g/dl Globulin gm/dL Albumin/Globulin Ratio (1-2) Urine Color (Yellow) Urine Appearance (Clear) Urine pH (5.0-8.0) Ur Specific [place] (1.005-1.030) Urine Protein (Negative) Urine Glucose (UA) (Negative) Urine Ketones (Negative) Urine Occult Blood (Negative) Urine Nitrite (Negative) Urine Bilirubin (Negative) Urine Urobilinogen (0.2-1.0) Ur Leukocyte Esterase (Negative) Urine RBC (0-5) /hpf Urine WBC (0-5) /hpf Ur Epithelial Cells (0-5) /hpf Urine Bacteria (FEW) /hpf Urine Mucus (FEW) /hpf SARS-CoV-2 RNA (ALESSIO) (NEGATIVE) MRSA (PCR) 12/19/20 12/19/20 12/19/20 Range/Units 04:30 04:30 04:30 WBC (4.23-9.07) K/mm3 Corrected WBC K/mm3 RBC (4.63-6.08) M/mm3 Hgb (13.7-17.5) gm/dl Hct (40.1-51.0) % MCV (79.0-92.2) fl MCH (25.7-32.2) pg MCHC (32.2-35.5) g/dl RDW Std Deviation (35.1-43.9) fL Plt Count (163-337) K/mm3 Neut % (Auto) Lymph % (Auto) [place] % (Auto) Eos % (Auto) Baso % (Auto) Neut # (Auto) Lymph # (Auto) [place] # (Auto) Eos # (Auto) Baso # (Auto) Neutrophils % (Manual) (40-60) % Band Neutrophils % (0-10) % Lymphocytes % (Manual) (20-40) % Atypical Lymphs % % Monocytes % (Manual) (2-10) % Eosinophils % (Manual) (0.8-7.0) % Basophils % (Manual) (0.2-1.2) Nucleated RBCs % Manual Slide Review Platelet Estimate Plt Morphology Comment Polychromasia Hypochromasia Poikilocytosis Anisocytosis Microcytosis Target Cells Tear Drop Cells Ovalocytes RBC Morph Comment PT 15.1 H (9.7-12.0) SECONDS INR 1.42 D-Dimer, Quantitative (0.19-0.50) mg/L Sodium 144 (136-145) mEq/L Potassium 4.3 (3.5-5.1) mEq/L Chloride 111 H (98-107) mEq/L Carbon Dioxide 26 (21-32) mEq/L Anion Gap 11.3 (5-15) BUN 12 (7-18) mg/dL Creatinine 1.1 (0.7-1.3) mg/dL Est Cr Clr Drug Dosing 68.74 Estimated GFR (MDRD) > 60 (>60) mL/min BUN/Creatinine Ratio 10.9 L (14-18) Glucose 90 (70-99) mg/dL Lactic Acid (0.4-2.0) mmol/L Calcium 7.4 L (8.5-10.1) mg/dL Phosphorus (2.6-4.7) mg/dL Magnesium (1.8-2.4) mg/dL Total Bilirubin 1.6 H (0.2-1.0) mg/dL AST 43 H (15-37) U/L ALT 26 (16-63) U/L Alkaline Phosphatase 260 H (46-116) U/L Troponin I (0.00-0.056) ng/mL C-Reactive Protein (<1.0) mg/dL NT-Pro-B Natriuret Pep 1336 H (0-125) pg/mL Total Protein 4.9 L (6.4-8.2) g/dl Albumin 2.3 L (3.4-5.0) g/dl Globulin 2.6 gm/dL Albumin/Globulin Ratio 0.9 L (1-2) Urine Color (Yellow) Urine Appearance (Clear) Urine pH (5.0-8.0) Ur Specific [place] (1.005-1.030) Urine Protein (Negative) Urine Glucose (UA) (Negative) Urine Ketones (Negative) Urine Occult Blood (Negative) Urine Nitrite (Negative) Urine Bilirubin (Negative) Urine Urobilinogen (0.2-1.0) Ur Leukocyte Esterase (Negative) Urine RBC (0-5) /hpf Urine WBC (0-5) /hpf Ur Epithelial Cells (0-5) /hpf Urine Bacteria (FEW) /hpf Urine Mucus (FEW) /hpf SARS-CoV-2 RNA (ALESSIO) (NEGATIVE) MRSA (PCR) 12/19/20 Range/Units 04:30 WBC (4.23-9.07) K/mm3 Corrected WBC K/mm3 RBC (4.63-6.08) M/mm3 Hgb (13.7-17.5) gm/dl Hct (40.1-51.0) % MCV (79.0-92.2) fl MCH (25.7-32.2) pg MCHC (32.2-35.5) g/dl RDW Std Deviation (35.1-43.9) fL Plt Count (163-337) K/mm3 Neut % (Auto) Lymph % (Auto) [place] % (Auto) Eos % (Auto) Baso % (Auto) Neut # (Auto) Lymph # (Auto) [place] # (Auto) Eos # (Auto) Baso # (Auto) Neutrophils % (Manual) (40-60) % Band Neutrophils % (0-10) % Lymphocytes % (Manual) (20-40) % Atypical Lymphs % % Monocytes % (Manual) (2-10) % Eosinophils % (Manual) (0.8-7.0) % Basophils % (Manual) (0.2-1.2) Nucleated RBCs % Manual Slide Review Platelet Estimate Plt Morphology Comment Polychromasia Hypochromasia Poikilocytosis Anisocytosis Microcytosis Target Cells Tear Drop Cells Ovalocytes RBC Morph Comment PT (9.7-12.0) SECONDS INR D-Dimer, Quantitative (0.19-0.50) mg/L Sodium (136-145) mEq/L Potassium (3.5-5.1) mEq/L Chloride (98-107) mEq/L Carbon Dioxide (21-32) mEq/L Anion Gap (5-15) BUN (7-18) mg/dL Creatinine (0.7-1.3) mg/dL Est Cr Clr Drug Dosing Estimated GFR (MDRD) (>60) mL/min BUN/Creatinine Ratio (14-18) Glucose (70-99) mg/dL Lactic Acid 2.3 H* (0.4-2.0) mmol/L Calcium (8.5-10.1) mg/dL Phosphorus (2.6-4.7) mg/dL Magnesium (1.8-2.4) mg/dL Total Bilirubin (0.2-1.0) mg/dL AST (15-37) U/L ALT (16-63) U/L Alkaline Phosphatase (46-116) U/L Troponin I (0.00-0.056) ng/mL C-Reactive Protein (<1.0) mg/dL NT-Pro-B Natriuret Pep (0-125) pg/mL Total Protein (6.4-8.2) g/dl Albumin (3.4-5.0) g/dl Globulin gm/dL Albumin/Globulin Ratio (1-2) Urine Color (Yellow) Urine Appearance (Clear) Urine pH (5.0-8.0) Ur Specific [place] (1.005-1.030) Urine Protein (Negative) Urine Glucose (UA) (Negative) Urine Ketones (Negative) Urine Occult Blood (Negative) Urine Nitrite (Negative) Urine Bilirubin (Negative) Urine Urobilinogen (0.2-1.0) Ur Leukocyte Esterase (Negative) Urine RBC (0-5) /hpf Urine WBC (0-5) /hpf Ur Epithelial Cells (0-5) /hpf Urine Bacteria (FEW) /hpf Urine Mucus (FEW) /hpf SARS-CoV-2 RNA (ALESSIO) (NEGATIVE) MRSA (PCR) Result Diagrams: 12/19/20 04:30 12/19/20 04:30 Sepsis Event Note - Evaluation Sepsis Screening Result: No Definite Risk - Focused Exam Vital Signs: Vital Signs Temp Pulse Resp BP Pulse Ox Pulse Ox 12/19/20 11:33 36.2 C 86 20 127/82 96 12/19/20 07:17 36.4 C 86 20 145/62 H 96 12/19/20 06:14 96 12/19/20 04:32 36.6 C 81 18 132/72 94 L - Problem List Review Problem List Initiated/Reviewed/Updated: Yes - My Orders Last 24 Hours: My Active Orders 12/18/20 21:18 Cardiac Monitoring [RC] CONTINUOUS Oxygen Therapy [RC] PRN Pulse Oximetry [RC] ASDIRECTED Up to Chair [RC] BID VTE/DVT Education [RC] Vital Signs [RC] Q4HR OT Evaluation and Treatment [CONS] Routine PT Evaluation and Treatment [CONS] Routine Respiratory Care Assess and Treatment [CONS] Routine Acetaminophen [TylenoL] 650 mg PO Q6H PRN Acetaminophen/HYDROcodone [[place] 325-5 MG] 1 tab PO Q6H PRN Albuterol/Ipratropium [DuoNeb 3.0-0.5 MG/3 ML] 3 ml NEB Q4H PRN Morphine 2 mg IVPUSH Q4H PRN Promethazine [Phenergan] 12.5 mg Sodium Chloride 0.9% [Normal Saline] 50 ml IV Q6H 12/18/20 21:19 Antiembolic Devices [RC] 0900 Sequential Compression Device [OM.PC] Per Unit Routine 12/18/20 21:21 RT Aerosol Therapy [RC] ASDIRECTED 12/18/20 21:26 hydrALAZINE [Apresoline] 10 mg IVPUSH Q4H PRN 12/18/20 21:30 Lactated Ringers [Ringers, Lactated] 1,000 ml IV ASDIRECTED 12/18/20 22:00 Azithromycin [Zithromax] 500 mg Sodium Chloride 0.9% [Normal Saline (AdvBag)] 250 ml IV Q24H 12/18/20 22:54 Resuscitation Status Routine 12/19/20 01:59 CULTURE SPUTUM + SMEAR [RM] Stat 12/19/20 10:05 Consult to Speech Language Pathology [CRUMB PACKER Evaluation and Treatment] [CONS] Routine 12/19/20 10:17 QUEtiapine [SEROqueL] 50 mg PO Q8H PRN 12/19/20 Lunch Regular Diet [DIET] Ferrous Sulfate 324 mg PO BID Lidocaine 4% [Aspercreme 4%] 1 each TOP DAILY OLANZapine [ZyPREXA] 10 mg PO DAILY Pantoprazole [ProTONIX] 40 mg PO DAILY Saccharomyces Boulardii [Florastor] 250 mg PO DAILY Sertraline [Zoloft] 100 mg PO DAILY lamoTRIgine 100 mg PO DAILY 12/19/20 13:11 Venous Doppler Lwr Ext Bi [US] Routine 12/19/20 13:19 Echo 2D wo Cont [US] Routine 12/19/20 21:00 Melatonin 3 mg PO BEDTIME OLANZapine [ZyPREXA] 20 mg PO BEDTIME Remove Patch 1 ea TRDERM Q24H Vemurafenib [Zelboraf] 0 mg PO BID atorvaSTATin [Lipitor] 20 mg PO BEDTIME cefTRIAXone [Rocephin] 2 gm Sodium Chloride 0.9% [Normal Saline] 100 ml IV Q24H lamoTRIgine 100 mg PO BEDTIME 12/20/20 05:00 CBC WITH AUTO DIFF [HEME] DAILY COMPREHENSIVE METABOLIC PN,CMP [CHEM] DAILY 12/21/20 05:00 CBC WITH AUTO DIFF [HEME] DAILY COMPREHENSIVE METABOLIC PN,CMP [CHEM] DAILY 12/22/20 05:00 CBC WITH AUTO DIFF [HEME] DAILY COMPREHENSIVE METABOLIC PN,CMP [CHEM] DAILY 12/23/20 05:00 CBC WITH AUTO DIFF [HEME] DAILY COMPREHENSIVE METABOLIC PN,CMP [CHEM] DAILY 12/24/20 05:00 CBC WITH AUTO DIFF [HEME] DAILY COMPREHENSIVE METABOLIC PN,CMP [CHEM] DAILY - Plan Plan:: Patient is a 65-year-old male with a history of anemia, thrombocytopenia, 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 Assessment: Acute hypoxic respiratory failure -Etiology could be due to pneumonia, CHF (BNP 1140), COPD (diffuse emphysematous change on CT angio chest) or pulmonary lymphoadenopathy -Pulse ox -Oxygen therapy as needed to keep oxygen therapy greater than 92% Pneumonia -I will treat his pneumonia as an community-acquired pneumonia -Speech pathology consult to rule out dysphagia since he has a slurred speech -CTA chest - patchy increased density within left upper chest suspicious for s mall area of pneumonia -was previously treated with prednisone -Sputum culture Anemia -Most likely due to malignancy and chemotherapy -Hb 9.6, MCV 64.9, MCHC 29.7, plt 58 on admission -on chemotherapy medication, Zelboraf, was previously treated with prednisone Elevation of D-dimer -Most likely due to malignancy -Has been on Xarelto -CTA change - No PE -Wells' score for DVT - 1 points. Moderate risk group for DVT. 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 -on chemotherapy medication, Zelboraf. -Mildly prominent lymph nodes within the mediastinum as well as marked splenomegaly. Left adrenal mass appears to be present CHF? -BNP 1140 -Troponin negative -Mag 2.1 -phos 3.1 Atrial fibrillation? -as per his long-term facility, he has atrial fibrillation -home med include Xarelto Hx of suicidal ideation -Denies suicidal ideation -Continue home medication sertraline, quetiapine, olanzapine, and lamotrigine Thrombocytopenia -Most likely due to malignancy and chemotherapy as well as marked splenomegaly -plt 58 on admission. 48 today -on chemotherapy medication, Zelboraf, was previously treated with prednisone -No evidence of bleeding -Xarelto/warfarin and aspirin is on hold Recent UTI -Per long-term records, he finished a course of Bactrim on 12 December lactic acidosis -LA 4.0 on admisison. -Could be due to dehydration -I do not feel he meets the sepsis criteria. Plan: 1. Will be admitted to the hospital as an inpatient to telemetry 2. Pulse ox and oxygen therapy to keep to oxygen saturation greater than 92%. Continue incentive spirometry and Acapella 3. Azithromycin and ceftriaxone. Inhalers. Pending sputum culture 4. Continue home RN supplementation 5. Echocardiogram. Intake and output and gentle IV fluid 6. Continue to hold aspirin and anticoagulation due to severe thrombocytopenia 7. Continue IV fluid for elevation of lactic acid. Trending lactic acid 8. DVT prophylaxis: SCD 9. CODE STATUS: DNI. I explained CPR and intubation at length to him for the presence of RN. Patient agreed with CPR but declined intubation. Deposition: 1 or 2 more days SNF PT
--- NOTE | 2020-12-19 16:43 | US ---
Bilateral lower extremity deep venous ultrasound: Duplex and color Doppler evaluation was obtained of the right and left common femoral, proximal greater saphenous, superficial femoral, popliteal, posterior tibial and peroneal veins. Comparison: No previous study is available. Findings: Neither peroneal veins are well visualized for compression. Normal phasic flow and augmentation is seen within these veins. Other deep veins show normal phasic flow, compression and augmentation. Impression: 1. No findings of deep venous thrombosis within the right or left lower extremities. Diagnostic code #1
--- NOTE | 2020-12-19 17:20 | CT ---
CT abdomen and pelvis Technique: Multiple axial sections were obtained from above the dome of the diaphragm inferiorly through the pubic symphysis. Intravenous and oral contrast was not utilized. Reconstructed coronal and sagittal images were obtained. Comparison: Prior CT chest study of 12/18/20. Findings: Small left- and right-sided pleural effusions are seen which are an interval change from prior chest CT study. Minimal atelectasis is noted within both posterior lung bases. Noncontrast appearance of the liver shows no focal abnormality. Spleen is markedly enlarged having a length of 20.9 cm. Spleen shows several low density areas which are nonspecific but could represent areas of infarct given the size of the spleen. Right adrenal gland is within normal limits. Left adrenal gland is felt to be visualized and is normal on this exam. Left kidney is displaced inferiorly. There is inflammatory type change seen around both kidneys. Small low-density cyst is noted within the right kidney measuring 1.1 cm. No other definite parenchymal abnormality is seen within either kidney. Several calcified gallstones are seen within the gallbladder. Abdominal aorta shows no aneurysm. Atherosclerotic change is noted within the aortoiliac system. Pancreas shows no discrete abnormality. No discrete retroperitoneal adenopathy is seen. No pelvic mass or adenopathy is appreciated. Bilateral partial fat-containing inguinal hernias are noted on both sides. Appendix is seen and is normal in size. Small fat-containing umbilical hernia is noted. No bowel dilatation is appreciated. Bone window settings were reviewed which show several compression deformities within T12 and L1 as well as L3. These are most likely old. Scattered degenerative change is also noted within the spine. There is evidence of osseous fixation devices within both hips. Partially visualized hydroceles are noted within the scrotum. Impression: 1. Enlarged spleen showing several low density lesions. Etiology for the splenic enlargement is not appreciated on this exam. Low density lesions could possibly represent areas of splenic infarcts given the size of the spleen. 2. Low density around both kidneys. These are nonspecific and could represent old or acute inflammatory change. 3. Small left-sided pleural effusion and minimal right-sided pleural effusion with adjacent atelectasis. These findings are an interval change from prior chest CT. 4. Large hydrocele is partially seen within the scrotum. 5. Several calcified gallstones are seen. 6. Other findings as noted above which appear to be nonacute. Diagnostic code #3
[2020-12-19] MEDS: Albuterol/Ipratropium 3.0-0.5 MG/3 ML Neb Soln NEB PRN ×2 (17:30)
[2020-12-19] MEDS: Acetaminophen 325 MG Tab PO PRN (20:46)
[2020-12-19] MEDS: Melatonin 3 MG Tab PO SCH (20:48)
[2020-12-19] MEDS: atorvaSTATin 20 MG Tab PO SCH (20:49)
[2020-12-19] MEDS: cefTRIAXone 2 GM in Sodium Chloride 0.9% 100 ML IV SCH (20:53)
[2020-12-19] MEDS: VEMURAFENIB 240 MG PO SCH (21:30)
[2020-12-19] MEDS: Azithromycin 500 MG in Sodium Chloride 0.9% 250 ML IV SCH (21:31)
[2020-12-20] MEDS: Acetaminophen/HYDROcodone 325-5 MG Tab PO PRN ×3 (03:21→22:25)
[2020-12-20] MEDS: Acetaminophen 325 MG Tab PO PRN ×3 (03:21→22:25)
[2020-12-20] MEDS: Lidocaine 4% 1 each Patch TOP SCH (08:50)
[2020-12-20] MEDS: Pantoprazole 40 MG Tab.CR PO SCH (08:51)
[2020-12-20] MEDS: lamoTRIgine 100 MG Tab PO SCH ×2 (08:51→21:28)
[2020-12-20] MEDS: Ferrous Sulfate 324 MG Tab.EC PO SCH ×2 (08:51→21:28)
[2020-12-20] MEDS: Sertraline 50 MG Tab PO SCH (08:51)
[2020-12-20] MEDS: Saccharomyces Boulardii (Probiotic) 250 MG Cap PO SCH (08:52)
[2020-12-20] MEDS: OLANZapine 5 MG Tab PO SCH ×2 (08:52→21:27)
[2020-12-20] MEDS: VEMURAFENIB 240 MG PO SCH ×2 (08:54→21:30)
--- NOTE | 2020-12-20 19:11 | PCM.PN ---
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 Patient feels fine. Less shortness of breath. But he still complains of left upper quadrant pain which started 3 weeks ago. He is on room air White blood cells of 2177 Platelets of 57 Sodium 146 Creatinine 1.0 Total bilirubin 1.5, AST 44, ALT 26, alkaline phos 271 - Review of Systems Systems Review Comment:: General: Reports: No Symptoms HEENT: Reports: No Symptoms Pulmonary: Reports: Shortness of Breath, Cough, Sputum Cardiovascular: Reports: No Symptoms Gastrointestinal: Reports: No Symptoms Genitourinary: Reports: No Symptoms Musculoskeletal: Reports: No Symptoms Skin: Reports: No Symptoms Psychiatric: Reports: No Symptoms Neurological: Reports: No Symptoms Hematologic/Lymphatic: Reports: No Symptoms Immunologic: Reports: No Symptoms - Patient Data Vitals - Most Recent: Last Vital Signs Temp 36.6 C 12/20/20 16:31 Pulse 91 12/20/20 16:31 Resp 18 12/20/20 16:31 BP 135/58 L 12/20/20 16:31 Pulse Ox 91 L 12/20/20 16:31 Weight - Most Recent: 74.435 kg I&O - Last 24 Hours: Intake & Output 12/20/20 12/20/20 12/20/20 06:59 14:59 22:59 Intake Total 4938 699 3218 Output Total 550 750 Balance 1008 300 610 Lab Results Last 24 Hours: Laboratory Results - last 24 hr 12/19/20 12/20/20 12/20/20 Range/Units 04:30 09:51 09:51 WBC 18.13 H 21.77 H (4.23-9.07) K/mm3 RBC 4.68 5.28 (4.63-6.08) M/mm3 Hgb 9.0 L 10.3 L (13.7-17.5) gm/dl Hct 30.4 L 34.4 L (40.1-51.0) % MCV 65.0 L 65.2 L (79.0-92.2) fl MCH 19.2 L 19.5 L (25.7-32.2) pg MCHC 29.6 L 29.9 L (32.2-35.5) g/dl RDW Std Deviation 53.9 H 55.7 H (35.1-43.9) fL Plt Count 48 L 57 L (163-337) K/mm3 MPV TNP Neut % (Auto) Cancelled Cancelled Lymph % (Auto) Cancelled Cancelled Cole % (Auto) Cancelled Cancelled Eos % (Auto) Cancelled Cancelled Baso % (Auto) Cancelled Cancelled Neut # (Auto) Cancelled Cancelled Lymph # (Auto) Cancelled Cancelled Cole # (Auto) Cancelled Cancelled Eos # (Auto) Cancelled Cancelled Baso # (Auto) Cancelled Cancelled Neutrophils % (Manual) 39 L 43 (40-60) % Band Neutrophils % 2 1 (0-10) % Lymphocytes % (Manual) 23 22 (20-40) % Atypical Lymphs % 0 0 % Monocytes % (Manual) 31 H 31 H (2-10) % Eosinophils % (Manual) 0 L 1 (0.8-7.0) % Basophils % (Manual) 0 L 1 (0.2-1.2) Metamyelocytes % 1 Myelocytes % 5 Nucleated RBCs 3.0 3.0 % Manual Slide Review Cancelled Cancelled Platelet Estimate Marked dec Marked dec Plt Morphology Comment See note Hypochromasia 2+ moderate 2+ moderate Poikilocytosis 2+ moderate 1+ slight Anisocytosis 2+ moder 1+ slight Microcytosis 1+ slight 1+ slight Tear Drop Cells 1+ slight Ovalocytes 1+ slight 1+ slight RBC Morph Comment Abnormal Anormal Sodium 146 H (136-145) mEq/L Potassium 4.3 (3.5-5.1) mEq/L Chloride 111 H (98-107) mEq/L Carbon Dioxide 26 (21-32) mEq/L Anion Gap 13.3 (5-15) BUN 13 (7-18) mg/dL Creatinine 1.0 (0.7-1.3) mg/dL Est Cr Clr Drug Dosing 75.61 mL/min Estimated GFR (MDRD) > 60 (>60) mL/min BUN/Creatinine Ratio 13.0 L (14-18) Glucose 116 H (70-99) mg/dL Calcium 7.5 L (8.5-10.1) mg/dL Total Bilirubin 1.5 H (0.2-1.0) mg/dL AST 44 H (15-37) U/L ALT 26 (16-63) U/L Alkaline Phosphatase 271 H (46-116) U/L Total Protein 5.1 L (6.4-8.2) g/dl Albumin 2.3 L (3.4-5.0) g/dl Globulin 2.8 gm/dL Albumin/Globulin Ratio 0.8 L (1-2) Jovani Results Last 24 Hours: Microbiology 12/19/20 01:59 Gram Stain - Final Sputum - Expectorated Sputum Culture - Preliminary Beta Streptococcus Group F 12/18/20 19:48 Aerobic Blood Culture - Preliminary Blood - Venous - Lab Draw NO GROWTH AFTER 1 DAY Anaerobic Blood Culture - Preliminary NO GROWTH AFTER 1 DAY 12/18/20 19:40 Aerobic Blood Culture - Preliminary Blood - Venous NO GROWTH AFTER 1 DAY Anaerobic Blood Culture - Preliminary NO GROWTH AFTER 1 DAY Med Orders - Current: Current Medications Acetaminophen (Acetaminophen 325 Mg Tab) 650 mg PO Q6H PRN PRN Reason: Pain (Mild 1-3)/fever Last Admin: 12/20/20 14:59 Dose: 650 mg Documented by: Hydrocodone Bitart/Acetaminophen (Acetaminophen/Hydrocodone 325-5 Mg Tab) 1 tab PO Q6H PRN PRN Reason: Pain (moderate 4-6) Last Admin: 12/20/20 14:59 Dose: 1 tab Documented by: Albuterol/Ipratropium (Albuterol/Ipratropium 3.0-0.5 Mg/3 Ml Neb Soln) 3 ml NEB Q4H PRN PRN Reason: Shortness Of Breath/wheezing Last Admin: 12/19/20 17:30 Dose: 3 ml Documented by: Atorvastatin Calcium (Atorvastatin 20 Mg Tab) 20 mg PO BEDTIME MELISSA Last Admin: 12/19/20 20:49 Dose: 20 mg Documented by: Ferrous Sulfate (Ferrous Sulfate 324 Mg Tab.Ec) 324 mg PO BID MELISSA Last Admin: 12/20/20 08:51 Dose: 324 mg Documented by: Hydralazine HCl (Hydralazine 20 Mg/Ml Sdv) 10 mg IVPUSH Q4H PRN PRN Reason: Hypertension Promethazine HCl 12.5 mg/ (Sodium Chloride) 50.5 mls @ 100 mls/hr IV Q6H PRN PRN Reason: Nausea/Vomiting Ceftriaxone Sodium 2 gm/ (Sodium Chloride) 100 mls @ 200 mls/hr IV Q24H [facility] Last Admin: 12/19/20 20:53 Dose: 200 mls/hr Documented by: Azithromycin 500 mg/ Sodium (Chloride) 250 mls @ 250 mls/hr IV Q24H [facility] Last Admin: 12/19/20 21:31 Dose: 250 mls/hr Documented by: Lamotrigine (Lamotrigine 100 Mg Tab) 100 mg PO BEDTIME [facility] Last Admin: 12/19/20 20:49 Dose: 100 mg Documented by: Lamotrigine (Lamotrigine 100 Mg Tab) 100 mg PO DAILY [facility] Last Admin: 12/20/20 08:51 Dose: 100 mg Documented by: Lidocaine (Lidocaine 4% 1 Each Patch) 1 each TOP DAILY [facility] Last Admin: 12/20/20 08:50 Dose: 1 each Documented by: Melatonin (Melatonin 3 Mg Tab) 3 mg PO BEDTIME [facility] Last Admin: 12/19/20 20:48 Dose: 3 mg Documented by: Miscellaneous Information (Remove Lidocaine Patch) 1 ea TRDERM Q24H [facility] Last Admin: 12/19/20 21:23 Dose: Not Given Documented by: Vemurafenib [ Zelboraf] 240 Mg Tablet Ptom 0 mg PO BID [facility] Last Admin: 12/20/20 08:54 Dose: 480 mg Documented by: Olanzapine (Olanzapine 5 Mg Tab) 10 mg PO DAILY [facility] Last Admin: 12/20/20 08:52 Dose: 10 mg Documented by: Olanzapine (Olanzapine 5 Mg Tab) 20 mg PO BEDTIME [facility] Last Admin: 12/19/20 20:48 Dose: 20 mg Documented by: Pantoprazole Sodium (Pantoprazole 40 Mg Tab.Cr) 40 mg PO DAILY [facility] Last Admin: 12/20/20 08:51 Dose: 40 mg Documented by: Quetiapine Fumarate (Quetiapine 25 Mg Tab) 50 mg PO Q8H PRN PRN Reason: Agitation Saccharomyces Boulardii (Saccharomyces Boulardii (Probiotic) 250 Mg Cap) 250 mg PO DAILY [facility] Last Admin: 12/20/20 08:52 Dose: 250 mg Documented by: Sertraline HCl (Sertraline 50 Mg Tab) 100 mg PO DAILY [facility] Last Admin: 12/20/20 08:51 Dose: 100 mg Documented by: Sodium Chloride (Sodium Chloride 0.9% 10 Ml Syringe) 10 ml FLUSH ASDIRECTED [facility] Last Admin: 12/18/20 20:15 Dose: 10 ml Documented by: Discontinued Medications Albuterol/Ipratropium (Albuterol/Ipratropium 3.0-0.5 Mg/3 Ml Neb Soln) 3 ml NEB ONETIME ONE Stop: 12/18/20 17:54 Last Admin: 12/18/20 18:15 Dose: 3 ml Documented by: Sodium Chloride (Normal Saline) 100 mls @ 60 mls/hr IV ASDIRECTED [facility] Last Admin: 12/18/20 20:15 Dose: 60 mls/hr Documented by: Ceftriaxone Sodium 2 gm/ (Sodium Chloride) 100 mls @ 200 mls/hr IV ONETIME ONE Stop: 12/18/20 21:07 Last Admin: 12/18/20 21:09 Dose: 200 mls/hr Documented by: Sodium Chloride (Normal Saline) 1,000 mls @ 100 mls/hr IV NOW STA Stop: 12/19/20 06:40 Last Admin: 12/18/20 21:09 Dose: 100 mls/hr Documented by: Lactated Ringer's (Ringers, Lactated) 1,000 mls @ 70 mls/hr IV ASDIRECTED [facility] Last Admin: 12/19/20 23:51 Dose: 70 mls/hr Documented by: Iopamidol (Iopamidol 755 Mg/Ml 100 Ml Bottle) 100 ml IVPUSH ONETIME ONE Stop: 12/18/20 19:32 Last Admin: 12/18/20 20:14 Dose: 100 ml Documented by: Morphine Sulfate (Morphine 2 Mg/Ml Syringe) 2 mg IVPUSH Q4H PRN PRN Reason: Pain (severe 7-10) Stop: 12/19/20 21:20 Last Admin: 12/19/20 09:26 Dose: 2 mg Documented by: Non-Formulary Medication (Omeprazole) 20 mg PO DAILY [facility] Last Admin: 12/19/20 12:26 Dose: Not Given Documented by: Sodium Chloride (Sodium Chloride 0.9% 10 Ml Syringe) 10 ml FLUSH ASDIRECTED PRN PRN Reason: Keep Vein Open Last Admin: 12/18/20 18:10 Dose: 10 ml Documented by: Tramadol HCl (Tramadol 50 Mg Tab) 50 mg PO BID PRN PRN Reason: Pain - Exam Physical Findings Comments:: General: Alert, Oriented, Cooperative HEENT: Conjunctiva Clear, EOMI, Pupils Equal, Pupils Reactive Neck: Supple, Full Range of Motion Lungs: Clear to Auscultation, Normal Respiratory Effort Cardiovascular: Irregular Rhythm GI/Abdominal Exam: Normal Bowel Sounds, Soft, Tender (Over left upper quadrant) Extremities: Normal Inspection, Normal Range of Motion, Non-Tender, No Pedal Edema Neurological: Cranial Nerves Intact, Strength Equal Bilateral, Normal Tone, Sensation Intact, Other (Has been having slurred speech for 3 years) Neuro Extensive - Mental Status: Alert, Normal Mood/Affect Psychiatric: Normal Affect, Normal Mood - Patient Data Lab Results Last 24 hrs: Laboratory Results - last 24 hr 12/19/20 12/20/20 12/20/20 Range/Units 04:30 09:51 09:51 WBC 18.13 H 21.77 H (4.23-9.07) K/mm3 RBC 4.68 5.28 (4.63-6.08) M/mm3 Hgb 9.0 L 10.3 L (13.7-17.5) gm/dl Hct 30.4 L 34.4 L (40.1-51.0) % MCV 65.0 L 65.2 L (79.0-92.2) fl MCH 19.2 L 19.5 L (25.7-32.2) pg MCHC 29.6 L 29.9 L (32.2-35.5) g/dl RDW Std Deviation 53.9 H 55.7 H (35.1-43.9) fL Plt Count 48 L 57 L (163-337) K/mm3 MPV TNP Neut % (Auto) Cancelled Cancelled Lymph % (Auto) Cancelled Cancelled Cole % (Auto) Cancelled Cancelled Eos % (Auto) Cancelled Cancelled Baso % (Auto) Cancelled Cancelled Neut # (Auto) Cancelled Cancelled Lymph # (Auto) Cancelled Cancelled Cole # (Auto) Cancelled Cancelled Eos # (Auto) Cancelled Cancelled Baso # (Auto) Cancelled Cancelled Neutrophils % (Manual) 39 L 43 (40-60) % Band Neutrophils % 2 1 (0-10) % Lymphocytes % (Manual) 23 22 (20-40) % Atypical Lymphs % 0 0 % Monocytes % (Manual) 31 H 31 H (2-10) % Eosinophils % (Manual) 0 L 1 (0.8-7.0) % Basophils % (Manual) 0 L 1 (0.2-1.2) Metamyelocytes % 1 Myelocytes % 5 Nucleated RBCs 3.0 3.0 % Manual Slide Review Cancelled Cancelled Platelet Estimate Marked dec Marked dec Plt Morphology Comment See note Hypochromasia 2+ moderate 2+ moderate Poikilocytosis 2+ moderate 1+ slight Anisocytosis 2+ moder 1+ slight Microcytosis 1+ slight 1+ slight Tear Drop Cells 1+ slight Ovalocytes 1+ slight 1+ slight RBC Morph Comment Abnormal Anormal Sodium 146 H (136-145) mEq/L Potassium 4.3 (3.5-5.1) mEq/L Chloride 111 H (98-107) mEq/L Carbon Dioxide 26 (21-32) mEq/L Anion Gap 13.3 (5-15) BUN 13 (7-18) mg/dL Creatinine 1.0 (0.7-1.3) mg/dL Est Cr Clr Drug Dosing 75.61 mL/min Estimated GFR (MDRD) > 60 (>60) mL/min BUN/Creatinine Ratio 13.0 L (14-18) Glucose 116 H (70-99) mg/dL Calcium 7.5 L (8.5-10.1) mg/dL Total Bilirubin 1.5 H (0.2-1.0) mg/dL AST 44 H (15-37) U/L ALT 26 (16-63) U/L Alkaline Phosphatase 271 H (46-116) U/L Total Protein 5.1 L (6.4-8.2) g/dl Albumin 2.3 L (3.4-5.0) g/dl Globulin 2.8 gm/dL Albumin/Globulin Ratio 0.8 L (1-2) Result Diagrams: 12/20/20 09:51 12/20/20 09:51 Jovani Results Last 24 hrs: Microbiology 12/19/20 01:59 Gram Stain - Final Sputum - Expectorated Sputum Culture - Preliminary Beta Streptococcus Group F 12/18/20 19:48 Aerobic Blood Culture - Preliminary Blood - Venous - Lab Draw NO GROWTH AFTER 1 DAY Anaerobic Blood Culture - Preliminary NO GROWTH AFTER 1 DAY 12/18/20 19:40 Aerobic Blood Culture - Preliminary Blood - Venous NO GROWTH AFTER 1 DAY Anaerobic Blood Culture - Preliminary NO GROWTH AFTER 1 DAY Sepsis Event Note - Evaluation Sepsis Screening Result: No Definite Risk - Focused Exam Vital Signs: Vital Signs Temp Pulse Resp BP Pulse Ox 12/20/20 16:31 36.6 C 91 18 135/58 L 91 L 12/20/20 11:26 36.4 C 81 16 139/67 94 L 12/20/20 07:15 36.4 C 77 18 133/63 91 L - Problem List Review Problem List Initiated/Reviewed/Updated: Yes - My Orders Last 24 Hours: My Active Orders 12/19/20 21:00 Melatonin 3 mg PO BEDTIME OLANZapine [ZyPREXA] 20 mg PO BEDTIME Remove Patch 1 ea TRDERM Q24H Vemurafenib [Zelboraf] 0 mg PO BID atorvaSTATin [Lipitor] 20 mg PO BEDTIME cefTRIAXone [Rocephin] 2 gm Sodium Chloride 0.9% [Normal Saline] 100 ml IV Q24H lamoTRIgine 100 mg PO BEDTIME 12/21/20 05:00 CBC WITH AUTO DIFF [HEME] DAILY COMPREHENSIVE METABOLIC PN,CMP [CHEM] DAILY 12/22/20 05:00 CBC WITH AUTO DIFF [HEME] DAILY COMPREHENSIVE METABOLIC PN,CMP [CHEM] DAILY 12/23/20 05:00 CBC WITH AUTO DIFF [HEME] DAILY COMPREHENSIVE METABOLIC PN,CMP [CHEM] DAILY 12/24/20 05:00 CBC WITH AUTO DIFF [HEME] DAILY COMPREHENSIVE METABOLIC PN,CMP [CHEM] DAILY - Plan Plan:: Patient is a 65-year-old male with a history of anemia, thrombocytopenia, 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 Assessment: Acute hypoxic respiratory failure -Etiology could be due to pneumonia, CHF (BNP 1140), COPD (diffuse emphysematous change on CT angio chest) or pulmonary lymphoadenopathy -Pulse ox -Oxygen therapy as needed to keep oxygen therapy greater than 92% -He he is now on room air Pneumonia -I will treat his pneumonia as an community-acquired pneumonia -Speech pathology consult to rule out dysphagia since he has a slurred speech -CTA chest - patchy increased density within left upper chest suspicious for small area of pneumonia -was previously treated with prednisone -Sputum [id number] rods and beta strep group F Anemia -Most likely due to malignancy and chemotherapy -Hb 9.6, MCV 64.9, MCHC 29.7, plt 58 on admission -on chemotherapy medication, Zelboraf, was previously treated with prednisone Elevation of D-dimer -Most likely due to malignancy -Has been on Xarelto -CTA change - No PE -Wells' score for DVT - 1 points. Moderate risk group for DVT. 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 -on chemotherapy medication, Zelboraf. -Mildly prominent lymph nodes within the mediastinum as well as marked splenomegaly. Left adrenal mass appears to be present CHF? -BNP 1140 -Troponin negative -Mag 2.1 -phos 3.1 Atrial fibrillation? -as per his longterm facility, he has atrial fibrillation -home med include Xarelto Hx of suicidal ideation -Denies suicidal ideation -Continue home medication sertraline, quetiapine, olanzapine, and lamotrigine Thrombocytopenia -Most likely due to malignancy and chemotherapy as well as marked splenomegaly -plt 58 on admission. 48 today -on chemotherapy medication, Zelboraf, was previously treated with prednisone -No evidence of bleeding -Xarelto/warfarin and aspirin is on hold Recent UTI -Per longterm records, he finished a course of Bactrim on 12 December lactic acidosis -LA 4.0 on admisison. -Could be due to dehydration -I do not feel he meets the sepsis criteria. Abdominal pain -left upper quadrant -CT abdomen -splenomegaly with possible splenic infarcts -Etiology unknown. Could be due to malignancy or thromboembolic events -Considering thrombocytopenia, around 50, I will not initiate therapeutic anticoagulation at this moment -Spoke to his oncologist Dr. Lew Pierre who would like to transfer him to his facility in [place] so that Dr Pierre may do further work-up and treatment for him. Plan: 1. Will be admitted to the hospital as an inpatient to telemetry 2. Pulse ox and oxygen therapy to keep to oxygen saturation greater than 92%. Continue incentive spirometry and Acapella 3. Sputum bzhavpi-ryew-sysyspfs rods and beta strep group F. I will discontinue azithromycin and continue ceftriaxone. Inhalers. 4. Continue home RN supplementation 5. Echocardiogram. Intake and output and gentle IV fluid 6. Continue to hold aspirin and anticoagulation due to severe thrombocytopenia 7. Continue IV fluid for elevation of lactic acid. Trending lactic acid 8. DVT prophylaxis: SCD 9. CODE STATUS: DNI. I explained CPR and intubation at length to him for the presence of RN. Patient agreed with CPR but declined intubation. Deposition: Patient got accepted by oncologist Dr. Lew Pierre and hospitalist Dr. Genao in [place]. However ambulance is not available until tomorrow. Spoke to patient and his (Alison Eric, [phone]) who agreed with this plan.
[2020-12-20] MEDS: Melatonin 3 MG Tab PO SCH (21:26)
[2020-12-20] MEDS: atorvaSTATin 20 MG Tab PO SCH (21:27)
[2020-12-20] MEDS: cefTRIAXone 2 GM in Sodium Chloride 0.9% 100 ML IV SCH (22:25)
[2020-12-21] MEDS: Lidocaine 4% 1 each Patch TOP SCH (08:57)
[2020-12-21] MEDS: Acetaminophen/HYDROcodone 325-5 MG Tab PO PRN (08:58)
[2020-12-21] MEDS: Sertraline 50 MG Tab PO SCH (08:59)
[2020-12-21] MEDS: Saccharomyces Boulardii (Probiotic) 250 MG Cap PO SCH (08:59)
[2020-12-21] MEDS ORDERED: amLODIPine 2.5 MG Tab PO SCH (09:00)
[2020-12-21] MEDS: lamoTRIgine 100 MG Tab PO SCH ×2 (09:00→20:41)
[2020-12-21] MEDS: Pantoprazole 40 MG Tab.CR PO SCH (09:00)
[2020-12-21] MEDS: Ferrous Sulfate 324 MG Tab.EC PO SCH ×2 (09:00→20:40)
[2020-12-21] MEDS: OLANZapine 5 MG Tab PO SCH ×2 (09:00→20:45)
[2020-12-21] MEDS: VEMURAFENIB 240 MG PO SCH (09:01)
--- NOTE | 2020-12-21 14:29 | PCM.PN ---
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 Patient feels fine. Less shortness of breath. But he still complains of left upper quadrant pain which started 3 weeks ago. He is on room air Blood pressure is not controlled well. WBC 22.44, platelets of 48 Patient has accepted by oncologist Dr. Lew Pierre and hospitalist Dr. Genao in [place]. He was initially scheduled to be transferred to [place] by a mbulance today. But his has changed mind and refused the plan because she is worried about transportation fee from [place] to [place] which his insurance may not cover. Spoke to oncologist Dr. Rutledge in [place] who could take the patient with help from Dr. Lew Pierre. Spoke to hospitalist Dr. Cardoza in [place] who felt it would be better to directly transfer this patient from [place] to [place] because his condition is very complicated and Dr. Cardoza would possibly need to transfer him to [place] from [place]. bible worker communicated with his insurance company. I feel that for patient's best interest, patient should go to [place] and gets treatment by Dr. Lew Pierre who has been treated his complicated cancer. - Review of Systems Systems Review Comment:: General: Reports: No Symptoms HEENT: Reports: No Symptoms Pulmonary: Reports: Shortness of Breath, Cough, Sputum Cardiovascular: Reports: No Symptoms Gastrointestinal: Reports: No Symptoms Genitourinary: Reports: No Symptoms Musculoskeletal: Reports: No Symptoms Skin: Reports: No Symptoms Psychiatric: Reports: No Symptoms Neurological: Reports: No Symptoms Hematologic/Lymphatic: Reports: No Symptoms Immunologic: Reports: No Symptoms - Patient Data Vitals - Most Recent: Last Vital Signs Temp 36.5 C 12/21/20 10:59 Pulse 84 12/21/20 10:59 Resp 20 12/21/20 10:59 BP 137/57 L 12/21/20 10:59 Pulse Ox 94 L 12/21/20 10:59 Weight - Most Recent: 74.571 kg I&O - Last 24 Hours: Intake & Output 12/20/20 12/21/20 12/21/20 22:59 06:59 14:59 Intake Total 2200 500 Output Total 750 1000 Balance 1450 -500 Lab Results Last 24 Hours: Laboratory Results - last 24 hr 12/21/20 12/21/20 Range/Units 06:00 06:00 WBC 22.44 H (4.23-9.07) K/mm3 RBC 5.29 (4.63-6.08) M/mm3 Hgb 10.2 L (13.7-17.5) gm/dl Hct 34.8 L (40.1-51.0) % MCV 65.8 L (79.0-92.2) fl MCH 19.3 L (25.7-32.2) pg MCHC 29.3 L (32.2-35.5) g/dl RDW Std Deviation 56.2 H (35.1-43.9) fL Plt Count 48 L (163-337) K/mm3 MPV TNP Neut % (Auto) Cancelled Lymph % (Auto) Cancelled [place] % (Auto) Cancelled Eos % (Auto) Cancelled Baso % (Auto) Cancelled Neut # (Auto) Cancelled Lymph # (Auto) Cancelled [place] # (Auto) Cancelled Eos # (Auto) Cancelled Baso # (Auto) Cancelled Neutrophils % (Manual) 50 (40-60) % Band Neutrophils % 0 (0-10) % Lymphocytes % (Manual) 38 (20-40) % Atypical Lymphs % 0 % Immat Monocytes % (Man) 0 Monocytes % (Manual) 11 H (2-10) % Eosinophils % (Manual) 0 L (0.8-7.0) % Basophils % (Manual) 0 L (0.2-1.2) Metamyelocytes % 1 Myelocytes % 0 Promyelocytes % 0 Blast Cells % 0 Plasma Cell % (Manual) 0 Nucleated RBCs 2.0 % Manual Slide Review Cancelled Platelet Estimate Marked dec Hypochromasia 2+ moderate Poikilocytosis 1+ slight Anisocytosis 1+ slight Microcytosis 2+ moderate Elliptocytes 2+ moderate RBC Morph Comment Not Reportable Sodium 144 (136-145) mEq/L Potassium 4.4 (3.5-5.1) mEq/L Chloride 110 H (98-107) mEq/L Carbon Dioxide 27 (21-32) mEq/L Anion Gap 11.4 (5-15) BUN 13 (7-18) mg/dL Creatinine 0.9 (0.7-1.3) mg/dL Est Cr Clr Drug Dosing 84.01 mL/min Estimated GFR (MDRD) > 60 (>60) mL/min BUN/Creatinine Ratio 14.4 (14-18) Glucose 93 (70-99) mg/dL Calcium 7.5 L (8.5-10.1) mg/dL Total Bilirubin 1.6 H (0.2-1.0) mg/dL AST 40 H (15-37) U/L ALT 26 (16-63) U/L Alkaline Phosphatase 275 H (46-116) U/L Total Protein 5.3 L (6.4-8.2) g/dl Albumin 2.4 L (3.4-5.0) g/dl Globulin 2.9 gm/dL Albumin/Globulin Ratio 0.8 L (1-2) Jovani Results Last 24 Hours: Microbiology 12/19/20 01:59 Gram Stain - Final Sputum - Expectorated Sputum Culture - Final Beta Streptococcus Group F 12/18/20 19:48 Aerobic Blood Culture - Preliminary Blood - Venous - Lab Draw NO GROWTH AFTER 2 DAYS Anaerobic Blood Culture - Preliminary NO GROWTH AFTER 2 DAYS 12/18/20 19:40 Aerobic Blood Culture - Preliminary Blood - Venous NO GROWTH AFTER 2 DAYS Anaerobic Blood Culture - Preliminary NO GROWTH AFTER 2 DAYS Med Orders - Current: Current Medications Acetaminophen (Acetaminophen 325 Mg Tab) 650 mg PO Q6H PRN PRN Reason: Pain (Mild 1-3)/fever Last Admin: 12/20/20 22:25 Dose: 650 mg Documented by: Hydrocodone Bitart/Acetaminophen (Acetaminophen/Hydrocodone 325-5 Mg Tab) 1 tab PO Q6H PRN PRN Reason: Pain (moderate 4-6) Last Admin: 12/21/20 08:58 Dose: 1 tab Documented by: Albuterol/Ipratropium (Albuterol/Ipratropium 3.0-0.5 Mg/3 Ml Neb Soln) 3 ml NEB Q4H PRN PRN Reason: Shortness Of Breath/wheezing Last Admin: 12/19/20 17:30 Dose: 3 ml Documented by: Amlodipine Besylate (Amlodipine 2.5 Mg Tab) 2.5 mg PO DAILY [facility] Last Admin: 12/21/20 08:59 Dose: 2.5 mg Documented by: Atorvastatin Calcium (Atorvastatin 20 Mg Tab) 20 mg PO BEDTIME [facility] Last Admin: 12/20/20 21:27 Dose: 20 mg Documented by: Ferrous Sulfate (Ferrous Sulfate 324 Mg Tab.Ec) 324 mg PO BID [facility] Last Admin: 12/21/20 09:00 Dose: 324 mg Documented by: Hydralazine HCl (Hydralazine 20 Mg/Ml Sdv) 10 mg IVPUSH Q4H PRN PRN Reason: Hypertension Promethazine HCl 12.5 mg/ (Sodium Chloride) 50.5 mls @ 100 mls/hr IV Q6H PRN PRN Reason: Nausea/Vomiting Ceftriaxone Sodium 2 gm/ (Sodium Chloride) 100 mls @ 200 mls/hr IV Q24H [facility] Last Admin: 12/20/20 22:25 Dose: 200 mls/hr Documented by: Lamotrigine (Lamotrigine 100 Mg Tab) 100 mg PO BEDTIME [facility] Last Admin: 12/20/20 21:28 Dose: 100 mg Documented by: Lamotrigine (Lamotrigine 100 Mg Tab) 100 mg PO DAILY [facility] Last Admin: 12/21/20 09:00 Dose: 100 mg Documented by: Lidocaine (Lidocaine 4% 1 Each Patch) 1 each TOP DAILY [facility] Last Admin: 12/21/20 08:57 Dose: 1 each Documented by: Melatonin (Melatonin 3 Mg Tab) 3 mg PO BEDTIME [facility] Last Admin: 12/20/20 21:26 Dose: 3 mg Documented by: Miscellaneous Information (Remove Lidocaine Patch) 1 ea TRDERM Q24H [facility] Last Admin: 12/20/20 22:22 Dose: Not Given Documented by: Vemurafenib [ Zelboraf] 240 Mg Tablet Ptom 0 mg PO BID [facility] Last Admin: 12/21/20 09:01 Dose: 480 mg Documented by: Olanzapine (Olanzapine 5 Mg Tab) 10 mg PO DAILY [facility] Last Admin: 12/21/20 09:00 Dose: 10 mg Documented by: Olanzapine (Olanzapine 5 Mg Tab) 20 mg PO BEDTIME [facility] Last Admin: 12/20/20 21:27 Dose: 20 mg Documented by: Pantoprazole Sodium (Pantoprazole 40 Mg Tab.Cr) 40 mg PO DAILY [facility] Last Admin: 12/21/20 09:00 Dose: 40 mg Documented by: Quetiapine Fumarate (Quetiapine 25 Mg Tab) 50 mg PO Q8H PRN PRN Reason: Agitation Saccharomyces Boulardii (Saccharomyces Boulardii (Probiotic) 250 Mg Cap) 250 mg PO DAILY [facility] Last Admin: 12/21/20 08:59 Dose: 250 mg Documented by: Sertraline HCl (Sertraline 50 Mg Tab) 100 mg PO DAILY [facility] Last Admin: 12/21/20 08:59 Dose: 100 mg Documented by: Sodium Chloride (Sodium Chloride 0.9% 10 Ml Syringe) 10 ml FLUSH ASDIRECTED [facility] Last Admin: 12/18/20 20:15 Dose: 10 ml Documented by: Discontinued Medications Albuterol/Ipratropium (Albuterol/Ipratropium 3.0-0.5 Mg/3 Ml Neb Soln) 3 ml NEB ONETIME ONE Stop: 12/18/20 17:54 Last Admin: 12/18/20 18:15 Dose: 3 ml Documented by: Sodium Chloride (Normal Saline) 100 mls @ 60 mls/hr IV ASDIRECTED [facility] Last Admin: 12/18/20 20:15 Dose: 60 mls/hr Documented by: Ceftriaxone Sodium 2 gm/ (Sodium Chloride) 100 mls @ 200 mls/hr IV ONETIME ONE Stop: 12/18/20 21:07 Last Admin: 12/18/20 21:09 Dose: 200 mls/hr Documented by: Sodium Chloride (Normal Saline) 1,000 mls @ 100 mls/hr IV NOW STA Stop: 12/19/20 06:40 Last Admin: 12/18/20 21:09 Dose: 100 mls/hr Documented by: Lactated Ringer's (Ringers, Lactated) 1,000 mls @ 70 mls/hr IV ASDIRECTED [facility] Last Admin: 12/19/20 23:51 Dose: 70 mls/hr Documented by: Azithromycin 500 mg/ Sodium (Chloride) 250 mls @ 250 mls/hr IV Q24H [facility] Last Admin: 12/19/20 21:31 Dose: 250 mls/hr Documented by: Iopamidol (Iopamidol 755 Mg/Ml 100 Ml Bottle) 100 ml IVPUSH ONETIME ONE Stop: 12/18/20 19:32 Last Admin: 12/18/20 20:14 Dose: 100 ml Documented by: Morphine Sulfate (Morphine 2 Mg/Ml Syringe) 2 mg IVPUSH Q4H PRN PRN Reason: Pain (severe 7-10) Stop: 12/19/20 21:20 Last Admin: 12/19/20 09:26 Dose: 2 mg Documented by: Non-Formulary Medication (Omeprazole) 20 mg PO DAILY [facility] Last Admin: 12/19/20 12:26 Dose: Not Given Documented by: Sodium Chloride (Sodium Chloride 0.9% 10 Ml Syringe) 10 ml FLUSH ASDIRECTED PRN PRN Reason: Keep Vein Open Last Admin: 12/18/20 18:10 Dose: 10 ml Documented by: Tramadol HCl (Tramadol 50 Mg Tab) 50 mg PO BID PRN PRN Reason: Pain - Exam Physical Findings Comments:: General: Alert, Oriented, Cooperative HEENT: Conjunctiva Clear, EOMI, Pupils Equal, Pupils Reactive Neck: Supple, Full Range of Motion Lungs: Clear to Auscultation, Normal Respiratory Effort Cardiovascular: Irregular Rhythm GI/Abdominal Exam: Normal Bowel Sounds, Soft, Tender (Over left upper quadrant) Extremities: Normal Inspection, Normal Range of Motion, Non-Tender, No Pedal Edema Neurological: Cranial Nerves Intact, Strength Equal Bilateral, Normal Tone, Sensation Intact, slurred speech (Has been having slurred speech for 3 years) Neuro Extensive - Mental Status: Alert, Normal Mood/Affect Psychiatric: Normal Affect, Normal Mood - Patient Data Lab Results Last 24 hrs: Laboratory Results - last 24 hr 12/21/20 12/21/20 Range/Units 06:00 06:00 WBC 22.44 H (4.23-9.07) K/mm3 RBC 5.29 (4.63-6.08) M/mm3 Hgb 10.2 L (13.7-17.5) gm/dl Hct 34.8 L (40.1-51.0) % MCV 65.8 L (79.0-92.2) fl MCH 19.3 L (25.7-32.2) pg MCHC 29.3 L (32.2-35.5) g/dl RDW Std Deviation 56.2 H (35.1-43.9) fL Plt Count 48 L (163-337) K/mm3 MPV TNP Neut % (Auto) Cancelled Lymph % (Auto) Cancelled [place] % (Auto) Cancelled Eos % (Auto) Cancelled Baso % (Auto) Cancelled Neut # (Auto) Cancelled Lymph # (Auto) Cancelled [place] # (Auto) Cancelled Eos # (Auto) Cancelled Baso # (Auto) Cancelled Neutrophils % (Manual) 50 (40-60) % Band Neutrophils % 0 (0-10) % Lymphocytes % (Manual) 38 (20-40) % Atypical Lymphs % 0 % Immat Monocytes % (Man) 0 Monocytes % (Manual) 11 H (2-10) % Eosinophils % (Manual) 0 L (0.8-7.0) % Basophils % (Manual) 0 L (0.2-1.2) Metamyelocytes % 1 Myelocytes % 0 Promyelocytes % 0 Blast Cells % 0 Plasma Cell % (Manual) 0 Nucleated RBCs 2.0 % Manual Slide Review Cancelled Platelet Estimate Marked dec Hypochromasia 2+ moderate Poikilocytosis 1+ slight Anisocytosis 1+ slight Microcytosis 2+ moderate Elliptocytes 2+ moderate RBC Morph Comment Not Reportable Sodium 144 (136-145) mEq/L Potassium 4.4 (3.5-5.1) mEq/L Chloride 110 H (98-107) mEq/L Carbon Dioxide 27 (21-32) mEq/L Anion Gap 11.4 (5-15) BUN 13 (7-18) mg/dL Creatinine 0.9 (0.7-1.3) mg/dL Est Cr Clr Drug Dosing 84.01 mL/min Estimated GFR (MDRD) > 60 (>60) mL/min BUN/Creatinine Ratio 14.4 (14-18) Glucose 93 (70-99) mg/dL Calcium 7.5 L (8.5-10.1) mg/dL Total Bilirubin 1.6 H (0.2-1.0) mg/dL AST 40 H (15-37) U/L ALT 26 (16-63) U/L Alkaline Phosphatase 275 H (46-116) U/L Total Protein 5.3 L (6.4-8.2) g/dl Albumin 2.4 L (3.4-5.0) g/dl Globulin 2.9 gm/dL Albumin/Globulin Ratio 0.8 L (1-2) Result Diagrams: 12/21/20 06:00 12/21/20 06:00 Jovnai Results Last 24 hrs: Microbiology 12/19/20 01:59 Gram Stain - Final Sputum - Expectorated Sputum Culture - Final Beta Streptococcus Group F 12/18/20 19:48 Aerobic Blood Culture - Preliminary Blood - Venous - Lab Draw NO GROWTH AFTER 2 DAYS Anaerobic Blood Culture - Preliminary NO GROWTH AFTER 2 DAYS 12/18/20 19:40 Aerobic Blood Culture - Preliminary Blood - Venous NO GROWTH AFTER 2 DAYS Anaerobic Blood Culture - Preliminary NO GROWTH AFTER 2 DAYS Sepsis Event Note - Evaluation Sepsis Screening Result: No Definite Risk - Focused Exam Vital Signs: Vital Signs Temp Pulse Resp BP Pulse Ox 12/21/20 10:59 36.5 C 84 20 137/57 L 94 L 12/21/20 08:59 145/67 H 12/21/20 07:32 36.5 C 79 20 145/67 H 94 L 12/21/20 04:42 36.4 C 74 20 143/61 H 92 L - Problem List Review Problem List Initiated/Reviewed/Updated: Yes - My Orders Last 24 Hours: My Active Orders 12/21/20 09:00 amLODIPine [Norvasc] 2.5 mg PO DAILY 12/22/20 05:00 CBC WITH AUTO DIFF [HEME] DAILY COMPREHENSIVE METABOLIC PN,CMP [CHEM] DAILY 12/23/20 05:00 CBC WITH AUTO DIFF [HEME] DAILY COMPREHENSIVE METABOLIC PN,CMP [CHEM] DAILY 12/24/20 05:00 CBC WITH AUTO DIFF [HEME] DAILY COMPREHENSIVE METABOLIC PN,CMP [CHEM] DAILY - Plan Plan:: Patient is a 65-year-old male with a history of anemia, thrombocytopenia, and 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 Assessment: Acute hypoxic respiratory failure -Etiology could be due to pneumonia, CHF (BNP 1140), COPD (diffuse emphysematous change on CT angio chest) or pulmonary lymphadenopathy -Pulse ox -Oxygen therapy as needed to keep oxygen therapy greater than 92% -He he is now on room air Pneumonia -I will treat his pneumonia as an community-acquired pneumonia -Speech pathology consult to rule out dysphagia since he has a slurred speech -m ild dysphagia. Aspiration precaution -CTA chest - patchy increased density within left upper chest suspicious for small area of pneumonia -was previously treated with prednisone for his cancer -Sputum [id number] rods and beta strep group F Anemia -Most likely due to malignancy and chemotherapy -Hb 9.6, MCV 64.9, MCHC 29.7, plt 58 on admission -on chemotherapy medication, Zelboraf, was previously treated with prednisone Elevation of D-dimer -Most likely due to malignancy -Has been on Xarelto -CTA change - No PE -Wells' score for DVT - 1 points. Moderate risk group for DVT. 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 -on chemotherapy medication, Zelboraf. -Mildly prominent lymph nodes within the mediastinum as well as marked splenomegaly. Left adrenal mass appears to be present CHF? -BNP 1140 -Troponin negative -Mag 2.1 -phos 3.1 Atrial fibrillation? -as per his [facility] facility, he has atrial fibrillation -home med include Xarelto Hx of suicidal ideation -Denies suicidal ideation -Continue home medication sertraline, quetiapine, olanzapine, and lamotrigine Thrombocytopenia -Most likely due to malignancy and chemotherapy as well as marked splenomegaly -plt 58 on admission. 48 today -on chemotherapy medication, Zelboraf, was previously treated with prednisone -No evidence of bleeding -Xarelto/warfarin and aspirin is on hold Recent UTI -Per [facility]dc records, he finished a course of Bactrim on 12 December lactic acidosis -LA 4.0 on admisison. -Could be due to dehydration -I do not feel he meets the sepsis criteria. Abdominal pain -left upper quadrant -CT abdomen -splenomegaly with possible splenic infarcts -Etiology unknown. Could be due to malignancy or thromboembolic events -Considering thrombocytopenia, around 50, I will not initiate therapeutic anticoagulation at this moment -Spoke to his oncologist Dr. Lew Pierre who would like to transfer him to his facility in [place] so that he may do further work-up and treatment for him. Dysphagia -As per speech pathologist, she has mild dysphagia -Recommended by speech pathologist-soft and bite sized diet (IDD 6) due to lack dentition -Aspiration precaution Plan: 1. Continue to be monitored in telemetry 2. Pulse ox and oxygen therapy to keep to oxygen saturation greater than 92%. He has been on room air over the past 3 days. Continue incentive spirometry and Acapella 3. Sputum [id number] rods and beta strep group F. discontinued azithromycin and continue ceftriaxone. Inhalers. 4. Aspiration precaution. Soft and bite sized diet. 5. Continue home iron supplementation 6. Echocardiogram -performed, report pending. Intake and output 7. Continue to hold aspirin and anticoagulation due to severe thrombocytopenia 8. DVT prophylaxis: SCD 9. CODE STATUS: DNI. I explained CPR and intubation at length to him for the presence of RN. Patient agreed with CPR but declined intubation. Deposition: Patient got accepted by oncologist Dr. Lew Pierre and hospitalist Dr. Linda obando in [place]. Patient will possibly be transferred to [place] tomorrow
--- NOTE | 2020-12-21 14:54 | PCM.SN.2 ---
- Free Text/Narrative Note: I was reported that pt has refused SCD. I instructed to try whatever pt can accept. Pt understood the risk for thromboembolic events.
[2020-12-21] MEDS: Albuterol/Ipratropium 3.0-0.5 MG/3 ML Neb Soln NEB PRN (15:43)
[2020-12-21] MEDS: Melatonin 3 MG Tab PO SCH (20:40)
[2020-12-21] MEDS: atorvaSTATin 20 MG Tab PO SCH (20:40)
[2020-12-21] MEDS: cefTRIAXone 2 GM in Sodium Chloride 0.9% 100 ML IV SCH (20:48)
[2020-12-22] MEDS: VEMURAFENIB 240 MG PO SCH (00:40)
[2020-12-22 06:45] VITALS: BP 135/48; PULSE 82
--- NOTE | 2020-12-22 08:49 | PCM.DCSUM1 ---
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 Assessment: Acute hypoxic respiratory failure -Etiology could be due to pneumonia, CHF (BNP 1140), COPD (diffuse emphysematous change on CT angio chest) or pulmonary lymphadenopathy -Pulse ox -Oxygen therapy as needed to keep oxygen therapy greater than 92% -He he is now on room air Pneumonia -I will treat his pneumonia as an community-acquired pneumonia -Speech pathology consult to rule out dysphagia since he has a slurred speech - mild dysphagia. Aspiration precaution -CTA chest - patchy increased density within left upper chest suspicious for small area of pneumonia -was previously treated with prednisone for his cancer -Sputum [id number]-mwogtrfv rods and beta strep group F Anemia -Most likely due to malignancy and chemotherapy -Hb 9.6, MCV 64.9, MCHC 29.7, plt 58 on admission -on chemotherapy medication, Zelboraf, was previously treated with prednisone Elevation of D-dimer -Most likely due to malignancy -Has been on Xarelto -CTA change - No PE -Wells' score for DVT - 1 points. Moderate risk group for DVT. 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 -on chemotherapy medication, Zelboraf. -Mildly prominent lymph nodes within the mediastinum as well as marked splenomegaly. Left adrenal mass appears to be present CHF? -BNP 1140 -Troponin negative -Mag 2.1 -phos 3.1 Atrial fibrillation? -as per his [facility] facility, he has atrial fibrillation -home med include Xarelto Hx of suicidal ideation -Denies suicidal ideation -Continue home medication sertraline, quetiapine, olanzapine, and lamotrigine Thrombocytopenia -Most likely due to malignancy and chemotherapy as well as marked splenomegaly -plt 58 on admission. 48 today -on chemotherapy medication, Zelboraf, was previously treated with prednisone -No evidence of bleeding -Xarelto/warfarin and aspirin is on hold Recent UTI -Per [facility]dc records, he finished a course of Bactrim on 12 December lactic acidosis -LA 4.0 on admisison. -Could be due to dehydration -I do not feel he meets the sepsis criteria. Abdominal pain -left upper quadrant -CT abdomen -splenomegaly with possible splenic infarcts -Etiology unknown. Could be due to malignancy or thromboembolic events -Considering thrombocytopenia, around 50, I will not initiate therapeutic anticoagulation at this moment -Spoke to his oncologist Dr. Lew Pierre who would like to transfer him to his facility in [place] so that he may do further work-up and treatment for him. Dysphagia -As per speech pathologist, she has mild dysphagia -Recommended by speech pathologist-soft and bite sized diet (IDD 6) due to lack dentition -Aspiration precaution Plan: 1. Continue to be monitored in telemetry 2. Pulse ox and oxygen therapy to keep to oxygen saturation greater than 92%. He has been on room air over the past 3 days. Continue incentive spirometry and Acapella 3. Sputum vnjfqzb-dcpr-oczbohhd rods and beta strep group F. discontinued azithromycin and continue ceftriaxone. Inhalers. 4. Aspiration precaution. Soft and bite sized diet. 5. Continue home iron supplementation 6. Echocardiogram -performed, report pending. Intake and output 7. Continue to hold aspirin and anticoagulation due to severe thrombocytopenia 8. DVT prophylaxis: SCD 9. CODE STATUS: DNI. I explained CPR and intubation at length to him for the presence of RN. Patient agreed with CPR but declined intubation. Deposition: I feel this patient needs to see his oncologist. He needs further work-up and treatment. I contacted his oncologist Dr. Lew Pierre and hospitalist Dr. Genao in [place] Friday who graciously accepted this patient. I spoke to patient and his Alison who agreed with the plan. But unfortunately, there was no ambulance available on Friday. So the patient was not able to transfer to [place] on Friday. He was initially scheduled to be transferred to [place] by ambulance yesterday (). But his has changed mind and refused the plan because she is worried about transportation fee from [place] to [place] which his insurance may not cover. Spoke to oncologist Dr. Rutledge in [place] who could take the patient with help from Dr. Lew Pierre. Spoke to hospitalist Dr. Cardoza in [place] who felt it would be better to directly transfer this patient from [place] to [place] because his condition is very complicated and Dr. Cardoza would possibly need to transfer him to [place] from [place]. 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 I feel that for patient's best interest, patient should go to [place] and gets treatment by Dr. Lew Pierre who has been treated his complicated cancer. The patient does not have any new complaints. Want to signs are stable and acceptable. He is on room air. He will be transported to [place] today. I updated to hospitalist Dr. Lepe who is the accepting physician in [place]. 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 Patient has been having shortness of breath for 3 weeks associated with the cough with yellowish sputum. He also complains of left upper quadrant abdomen pain for 3 weeks. The pain is constant, sharp in nature and a 10 out of 10 in severity. He feels more pain if he takes deep breaths. He has been having slurred speech for 3 years. Otherwise he denies headache, dizziness, nausea, vomiting, chest pain, or dysuria. He needed oxygen in the ER. In the ER, D-dimer was elevated. CT angio chest was performed showing no pulmonary embolism Diagnosis: Stroke: No - Discharge Data Discharge Date: 12/22/20 Discharge Disposition: DC/Tfer to Acute Hospital 02 Condition: Stable - Referral to Home Health Primary Care Physician: Chaz Vanegas MD - Patient Summary/Data Consults: Consultations 12/18/20 21:18 OT Evaluation and Treatment [CONS] Routine PT Evaluation and Treatment [CONS] Routine Respiratory Care Assess and Treatment [CONS] Routine 12/19/20 10:05 Consult to Speech Language Pathology [NURSE AIDE Evaluation and Treatment] [CONS] Routine - Patient Instructions Diet: Mechanical Soft (Soft and bite sized) Activity: As Tolerated Driving: Do Not Drive - Discharge Plan *PRESCRIPTION DRUG MONITORING PROGRAM REVIEWED*: Not Applicable *COPY OF PRESCRIPTION DRUG MONITORING REPORT IN PATIENT RUDY: Not Applicable Home Medications: Home Meds Sertraline HCl 100 mg PO DAILY 03/06/19 [History] atorvaSTATin [Lipitor] 20 mg PO BEDTIME 03/06/19 [History] Acetaminophen [Tylenol] 2 tab PO QID 12/18/20 [History] Ferrous Sulfate [Ferosul] 325 mg PO BID 12/18/20 [History] L.acidoph,Saliva/B.bif/S.therm [Acidophilus 175 mg Capsule] 1 cap PO DAILY 12/18/20 [History] Lidocaine 5% [Lidoderm 5%] 1 patch TOP DAILY 12/18/20 [History] Melatonin 3 mg PO BEDTIME 12/18/20 [History] OLANZapine [Olanzapine] 10 mg PO DAILY 12/18/20 [History] OLANZapine [Olanzapine] 20 mg PO BEDTIME 12/18/20 [History] Pantoprazole [ProTONIX] 40 mg PO DAILY 12/18/20 [History] QUEtiapine [SEROquel] 50 mg PO Q8HR PRN 12/18/20 [History] Rivaroxaban [Xarelto] 20 mg PO QPM 12/18/20 [History] Vemurafenib [Zelboraf] 480 mg PO BID 12/18/20 [History] lamoTRIgine [Lamictal] 100 mg PO BEDTIME 12/18/20 [History] lamoTRIgine [Lamictal] 100 mg PO DAILY 12/18/20 [History] ondansetron HCL [Zofran] 8 mg PO Q4H PRN 12/18/20 [History] traMADol HCl [Tramadol HCl] 50 mg PO BID PRN 12/18/20 [History] Patient Handouts: Sepsis, Self Care, Adult Forms: ED Department Discharge Referrals: Chaz Vanegas MD [Primary Care Provider] - 01/01/21 2:15 pm (Check in is at 2 p.m.) - Discharge Summary/Plan Comment DC Time >30 min.: Yes - General Info Date of Service: 12/22/20 Admission Dx/Problem (Free Text: Admission Diagnosis/Problem Admission Diagnosis/Problem Pneumonia Subjective Update: Patient is a 65-year-old male with a history of anemia, thrombocytopenia, and Erdheim-Harjinder disease on chemotherapy who presented to the ER from [facility] due to worsening shortness of breath and tachypnea for 1 day. I was not reported any new complaints. No acute event over the night He is on room air - Review of Systems Systems Review Comment: General: Reports: No Symptoms HEENT: Reports: No Symptoms Pulmonary: Reports: Shortness of Breath, Cough, Sputum Cardiovascular: Reports: No Symptoms Gastrointestinal: Reports: No Symptoms Genitourinary: Reports: No Symptoms Musculoskeletal: Reports: No Symptoms Skin: Reports: No Symptoms Psychiatric: Reports: No Symptoms Neurological: Reports: No Symptoms Hematologic/Lymphatic: Reports: No Symptoms Immunologic: Reports: No Symptoms - Patient Data Vitals - Most Recent: Last Vital Signs Temp 36.7 C 12/22/20 05:46 Pulse 82 12/22/20 05:46 Resp 19 12/22/20 05:46 BP 135/48 L 12/22/20 05:46 Pulse Ox 91 L 12/22/20 05:46 Weight - Most Recent: 74.571 kg I&O - Last 24 hours: Intake & Output 12/21/20 12/22/20 12/22/20 22:59 06:59 14:59 Intake Total 940 400 Output Total 445 200 Balance 495 200 CORTNEY Results - Last 24 hrs: Microbiology 12/18/20 19:48 Aerobic Blood Culture - Preliminary Blood - Venous - Lab Draw NO GROWTH AFTER 3 DAYS Anaerobic Blood Culture - Preliminary NO GROWTH AFTER 3 DAYS 12/18/20 19:40 Aerobic Blood Culture - Preliminary Blood - Venous NO GROWTH AFTER 3 DAYS Anaerobic Blood Culture - Preliminary NO GROWTH AFTER 3 DAYS 12/19/20 01:59 Gram Stain - Final Sputum - Expectorated Sputum Culture - Final Beta Streptococcus Group F Med Orders - Current: Current Medications Discontinued Medications Acetaminophen (Acetaminophen 325 Mg Tab) 650 mg PO Q6H PRN PRN Reason: Pain (Mild 1-3)/fever Last Admin: 12/20/20 22:25 Dose: 650 mg Documented by: Hydrocodone Bitart/Acetaminophen (Acetaminophen/Hydrocodone 325-5 Mg Tab) 1 tab PO Q6H PRN PRN Reason: Pain (moderate 4-6) Last Admin: 12/21/20 08:58 Dose: 1 tab Documented by: Albuterol/Ipratropium (Albuterol/Ipratropium 3.0-0.5 Mg/3 Ml Neb Soln) 3 ml NEB ONETIME ONE Stop: 12/18/20 17:54 Last Admin: 12/18/20 18:15 Dose: 3 ml Documented by: Albuterol/Ipratropium (Albuterol/Ipratropium 3.0-0.5 Mg/3 Ml Neb Soln) 3 ml NEB Q4H PRN PRN Reason: Shortness Of Breath/wheezing Last Admin: 12/21/20 15:43 Dose: 3 ml Documented by: Amlodipine Besylate (Amlodipine 2.5 Mg Tab) 2.5 mg PO DAILY [facility] Last Admin: 12/21/20 08:59 Dose: 2.5 mg Documented by: Atorvastatin Calcium (Atorvastatin 20 Mg Tab) 20 mg PO BEDTIME [facility] Last Admin: 12/21/20 20:40 Dose: 20 mg Documented by: Ferrous Sulfate (Ferrous Sulfate 324 Mg Tab.Ec) 324 mg PO BID [facility] Last Admin: 12/21/20 20:40 Dose: 324 mg Documented by: Hydralazine HCl (Hydralazine 20 Mg/Ml Sdv) 10 mg IVPUSH Q4H PRN PRN Reason: Hypertension Sodium Chloride (Normal Saline) 100 mls @ 60 mls/hr IV ASDIRECTED [facility] Last Admin: 12/18/20 20:15 Dose: 60 mls/hr Documented by: Ceftriaxone Sodium 2 gm/ (Sodium Chloride) 100 mls @ 200 mls/hr IV ONETIME ONE Stop: 12/18/20 21:07 Last Admin: 12/18/20 21:09 Dose: 200 mls/hr Documented by: Sodium Chloride (Normal Saline) 1,000 mls @ 100 mls/hr IV NOW STA Stop: 12/19/20 06:40 Last Admin: 12/18/20 21:09 Dose: 100 mls/hr Documented by: Lactated Ringer's (Ringers, Lactated) 1,000 mls @ 70 mls/hr IV ASDIRECTED [facility] Last Admin: 12/19/20 23:51 Dose: 70 mls/hr Documented by: Promethazine HCl 12.5 mg/ (Sodium Chloride) 50.5 mls @ 100 mls/hr IV Q6H PRN PRN Reason: Nausea/Vomiting Ceftriaxone Sodium 2 gm/ (Sodium Chloride) 100 mls @ 200 mls/hr IV Q24H [facility] Last Admin: 12/21/20 20:48 Dose: 200 mls/hr Documented by: Azithromycin 500 mg/ Sodium (Chloride) 250 mls @ 250 mls/hr IV Q24H [facility] Last Admin: 12/19/20 21:31 Dose: 250 mls/hr Documented by: Iopamidol (Iopamidol 755 Mg/Ml 100 Ml Bottle) 100 ml IVPUSH ONETIME ONE Stop: 12/18/20 19:32 Last Admin: 12/18/20 20:14 Dose: 100 ml Documented by: Lamotrigine (Lamotrigine 100 Mg Tab) 100 mg PO BEDTIME [facility] Last Admin: 12/21/20 20:41 Dose: 100 mg Documented by: Lamotrigine (Lamotrigine 100 Mg Tab) 100 mg PO DAILY [facility] Last Admin: 12/21/20 09:00 Dose: 100 mg Documented by: Lidocaine (Lidocaine 4% 1 Each Patch) 1 each TOP DAILY [facility] Last Admin: 12/21/20 08:57 Dose: 1 each Documented by: Melatonin (Melatonin 3 Mg Tab) 3 mg PO BEDTIME [facility] Last Admin: 12/21/20 20:40 Dose: 3 mg Documented by: Miscellaneous Information (Remove Lidocaine Patch) 1 ea TRDERM Q24H [facility] Last Admin: 12/21/20 22:41 Dose: Not Given Documented by: Morphine Sulfate (Morphine 2 Mg/Ml Syringe) 2 mg IVPUSH Q4H PRN PRN Reason: Pain (severe 7-10) Stop: 12/19/20 21:20 Last Admin: 12/19/20 09:26 Dose: 2 mg Documented by: Non-Formulary Medication (Omeprazole) 20 mg PO DAILY [facility] Last Admin: 12/19/20 12:26 Dose: Not Given Documented by: Vemurafenib [ Zelboraf] 240 Mg Tablet Ptom 0 mg PO BID [facility] Last Admin: 12/22/20 00:40 Dose: Not Given Documented by: Olanzapine (Olanzapine 5 Mg Tab) 10 mg PO DAILY [facility] Last Admin: 12/21/20 09:00 Dose: 10 mg Documented by: Olanzapine (Olanzapine 5 Mg Tab) 20 mg PO BEDTIME [facility] Last Admin: 12/21/20 20:45 Dose: 20 mg Documented by: Pantoprazole Sodium (Pantoprazole 40 Mg Tab.Cr) 40 mg PO DAILY [facility] Last Admin: 12/21/20 09:00 Dose: 40 mg Documented by: Quetiapine Fumarate (Quetiapine 25 Mg Tab) 50 mg PO Q8H PRN PRN Reason: Agitation Saccharomyces Boulardii (Saccharomyces Boulardii (Probiotic) 250 Mg Cap) 250 mg PO DAILY [facility] Last Admin: 12/21/20 08:59 Dose: 250 mg Documented by: Sertraline HCl (Sertraline 50 Mg Tab) 100 mg PO DAILY [facility] Last Admin: 12/21/20 08:59 Dose: 100 mg Documented by: Sodium Chloride (Sodium Chloride 0.9% 10 Ml Syringe) 10 ml FLUSH ASDIRECTED PRN PRN Reason: Keep Vein Open Last Admin: 12/18/20 18:10 Dose: 10 ml Documented by: Sodium Chloride (Sodium Chloride 0.9% 10 Ml Syringe) 10 ml FLUSH ASDIRECTED [facility] Last Admin: 12/18/20 20:15 Dose: 10 ml Documented by: Tramadol HCl (Tramadol 50 Mg Tab) 50 mg PO BID PRN PRN Reason: Pain - Exam Physical Findings Comments:: General: Alert, Oriented, Cooperative HEENT: Conjunctiva Clear, EOMI, Pupils Equal, Pupils Reactive Neck: Supple, Full Range of Motion Lungs: Clear to Auscultation, Normal Respiratory Effort Cardiovascular: Irregular Rhythm GI/Abdominal Exam: Normal Bowel Sounds, Soft, Tender (Over left upper quadrant) Extremities: Normal Inspection, Normal Range of Motion, Non-Tender, No Pedal Edema Neurological: Cranial Nerves Intact, Strength Equal Bilateral, Normal Tone, Sensation Intact, slurred speech (Has been having slurred speech for 3 years) Neuro Extensive - Mental Status: Alert, Normal Mood/Affect Psychiatric: Normal Affect, Normal Mood
== END 2020-12-22 06:25 | DRG 139 ==
LOC: JD.ED 17:00 → JD.MS 20:50
PROVIDERS: ADMIT Internal Medicine; ATTEND Internal Medicine
DX: J18.9 Pneumonia, unspecified organism (principal); J96.01 Acute respiratory failure with hypoxia; I50.9 Heart failure, unspecified; J44.0 Chronic obstructive pulmonary disease with (acute) lower respiratory infection; D63.0 Anemia in neoplastic disease; C79.51 Secondary malignant neoplasm of bone; I48.91 Unspecified atrial fibrillation; Z79.01 Long term (current) use of anticoagulants; Z87.440 Personal history of urinary (tract) infections; E87.2 Acidosis; D69.6 Thrombocytopenia, unspecified; R13.10 Dysphagia, unspecified; Z66 Do not resuscitate; I25.2 Old myocardial infarction; Z95.1 Presence of aortocoronary bypass graft; E86.0 Dehydration; Z20.822 Contact with and (suspected) exposure to COVID-19
CPT/HCPCS: 36415; 71046; 71046-26; 71275; 71275-26; 74176; 74176-26; 80053; 81001; 83605; 83735; 83880; 84100; 84484; 85007; 85027; 85379; 85610; 86140; 87040; 87070; 87077; 87205; 87641; 92610-GN; 93005; 93010; 93306; 93970; 93970-26; 94640; 94761; 94762; 96365; 97162-GP; 97166-GO; 97530-GO; 99222; 99233; 99239; 99284; 99285-25; A9270-GY; J0456; J0696; J2270; J7030; J7050; J7120; J7620-GY; Q9967; U0002